=== PATIENT | male | born 1955 | race Caucasian/White ===

== ENCOUNTER 2016-11-29 19:27 | Emergency (ER) | payer BC ==
[~2016-11-29] VITALS: Ht 175.3 cm; Wt 87.3 kg
[2016-11-29 19:41] VITALS: Ht 175.3 cm; Wt 87.3 kg
--- NOTE | 2016-11-29 20:43 | DIAGNOSTIC IMAGING REPORT ---
LEFT WRIST 4 VIEWS CLINICAL HISTORY: Fall with left wrist injury. FINDINGS: 4 views of left wrist are obtained. No prior studies are available for comparison at the time of dictation. The skeletal structures are osteopenic. No definite acute fracture is seen. There is chronic appearing deformity of the distal radial metaphysis, likely related to remote fracture. Mild degenerative narrowing is seen at the radiocarpal articulation. Arthritic change is noted at the first carpometacarpal articulation. Calcification is noted in the triangle fibrocartilage. Soft tissue edema is noted around the wrist. IMPRESSION: 1. Soft tissue swelling. No definite acute fracture is seen. If there is clinical concern for occult fracture consider short-term radiographic follow-up. 2. There is chronic appearing contour deformity of the distal radial metaphysis, likely related to remote fracture. Correlation with the clinical findings and patient history will be required. 3. Osteopenia with mild degenerative change and chondrocalcinosis as above. Electronically signed by: Yonathan Michelle M.D. 11/29/2016 8:41 PM Dictated Date/Time: 11/29/2016 8:39 PM
--- NOTE | 2016-11-29 20:46 | DIAGNOSTIC IMAGING REPORT ---
RIGHT ANKLE 3 VIEWS CLINICAL HISTORY: Right ankle twisting injury. FINDINGS: 3 views of the right ankle are obtained. No prior studies are available for comparison at the time of dictation. The skeletal structures are osteopenic. There is an acute and minimally distracted avulsion fracture from the inferior aspect of the lateral malleolus. No additional fracture is identified. The ankle mortise appears maintained. There is a joint effusion and soft tissue swelling is seen around the ankle. Degenerative spurring is noted along the dorsal aspect of the tarsal bones. IMPRESSION: Minimally distracted avulsion fracture from the lateral malleolus with associated soft tissue swelling and joint effusion. Electronically signed by: Yonathan Michelle M.D. 11/29/2016 8:44 PM Dictated Date/Time: 11/29/2016 8:43 PM
--- NOTE | 2016-11-29 21:01 | EMERGENCY ROOM VISIT NOTE ---
ED Visit Note First contact with patient: 19:47 CHIEF COMPLAINT: Right ankle and left wrist injuries after a fall this afternoon HISTORY OF PRESENT ILLNESS: Patient is a [id number] 61-year-old white male who presents emergency department for evaluation of right ankle and left wrist pain. He states that he tripped on the sidewalk this afternoon while taking a walk. He rolled his right ankle and fell, catching himself on his extended left wrist. He did also landed on his flexed left knee and has an abrasion there. He did not strike his head or lose consciousness. He is primarily concerned about the pain in the lateral aspect of the right ankle. It is progressively worsened throughout the afternoon despite taking ibuprofen and applying ice. He is now having difficulty weightbearing. He rates his discomfort and 8/10. He does also note some discomfort in the dorsal aspect of the left wrist that is worse with movement. He reports a remote history of a left wrist fracture. REVIEW OF SYSTEMS: Review of systems as per HPI. All other systems reviewed were negative. At least 6 systems reviewed. PMH: Electronic medical records are reviewed and summarized as above/below. See Problem List. SOCIAL HISTORY: Patient lives at home with his . Nonsmoker.. PHYSICAL EXAM: Vital Signs: Reviewed Nurse's notes. MENTAL STATUS: Pleasant 61- year-old white male who is awake and alert and seated in a wheelchair in no acute distress. The right ankle is swollen and tender over the lateral aspect but the skin is intact and there is no ligamentous instability. No pain over the 5th metatarsal or fibular head. Lisfranc joint is negative. There is no deformity. The foot and toes are warm and well-perfused. Sensation to pain and light touch is intact. Examination of the left wrist shows slight dorsal soft tissue swelling, with some mild tenderness over the distal aspect of the dorsal radius. Does have pain with wrist extension and pronation and supination. No anatomic snuffbox tenderness. EMERGENCY DEPARTMENT COURSE: X-rays of the left wrist and right ankle were obtained. Wrist x-rays were interpreted as negative for acute fracture or bony abnormality. Ankle x-ray is consistent with an acute minimally distracted avulsion fracture of the inferior lateral malleolus. A short-leg exterior Ortho -Glass splint was applied to the ankle under my direction and the position was satisfactory. Walker were issued and patient was instructed on a non weight bearing gait. He is previously established with [facility]. He declined prescription analgesia. He has a wrist lacer at home that he can use. Differential diagnosis include foot verses ankle sprain/fracture, contusion, dislocation. RIGHT ANKLE 3 VIEWS CLINICAL HISTORY: Right ankle twisting injury. FINDINGS: 3 views of the right ankle are obtained. No prior studies are available for comparison at the time of dictation. The skeletal structures are osteopenic. There is an acute and minimally distracted avulsion fracture from the inferior aspect of the lateral malleolus. No additional fracture is identified. The ankle mortise appears maintained. There is a joint effusion and soft tissue swelling is seen around the ankle. Degenerative spurring is noted along the dorsal aspect of the tarsal bones. IMPRESSION: Minimally distracted avulsion fracture from the lateral malleolus with associated soft tissue swelling and joint effusion. LEFT WRIST 4 VIEWS CLINICAL HISTORY: Fall with left wrist injury. FINDINGS: 4 views of left wrist are obtained. No prior studies are available for comparison at the time of dictation. The skeletal structures are osteopenic. No definite acute fracture is seen. There is chronic appearing deformity of the distal radial metaphysis, likely related to remote fracture. Mild degenerative narrowing is seen at the radiocarpal articulation. Arthritic change is noted at the first carpometacarpal articulation. Calcification is noted in the triangle fibrocartilage. Soft tissue edema is noted around the wrist. IMPRESSION: 1. Soft tissue swelling. No definite acute fracture is seen. If there is clinical concern for occult fracture consider short-term radiographic follow-up. 2. There is chronic appearing contour deformity of the distal radial metaphysis, likely related to remote fracture. Correlation with the clinical findings and patient history will be required. 3. Osteopenia with mild degenerative change and chondrocalcinosis as above. Problem List Medical Problems: (1) Diab Jerica Wo Compl, Type Ii Or Unspec Type, Uncontrolled Status: Chronic (2) Dysmetabolic Syndrome X Status: Chronic (3) Hypertension Nos Status: Chronic (4) Hypertrophy Of Prostate (Benign) Status: Chronic (5) Mixed Hyperlipidemia Status: Chronic Current/Historical Medications Scheduled Glyburide (Diabeta), 1 TAB PO DAILY Lisinopril (Prinivil), 1 TAB PO DAILY Metformin Hcl (Glucophage), 850 MG PO TID Simvastatin (Zocor), 1 TAB PO QPM Sitagliptin (Januvia), 1 TAB PO DAILY [Flourocil], 1 APPLN TOP BID Allergies Coded Allergies: No Known Allergies (Verified Allergy, Unknown, 01/01/03) Vital Signs Date Time Temp Pulse Resp B/P Pulse Ox O2 Delivery O2 Flow Rate FiO2 11/29/16 21:15 90 18 164/89 97 11/29/16 19:41 90 18 192/102 99 Room Air Departure Information Impression Primary Impression: Closed fracture of right distal fibula Additional Impression: Left wrist sprain Referrals Ricardo Luna MD (PCP) Javier Hall M.D. Patient Instructions My [facility] Additional Instructions Ibuprofen(Motrin, Advil) may be used for fever or pain. Use 600mg every six hours as needed. Take with food. Avoid using more than 2400mg in a 24 hour period. Do not use 2400mg per day for more than three consecutive days without physician direction. Prolonged inappropriate use can lead to stomach upset or ulcers. This medication can be taken if you need to drive, work, or perform activities which may be dangerous when taking narcotic pain medication. (AND/OR) Acetaminophen(Tylenol) may be used for fever or pain. Use 1000mg every six hours as needed. Avoid using more than 3000mg in a 24 hour period. This medication can be taken if you need to drive, work, or perform activities which may be dangerous when taking narcotic pain medication. Ice compresses for 20 minutes at a time four times daily for 2-3 days. Use the walker as instructed. Wear the wrist lacer on the left wrist as needed for support. Rest and elevate your injury. Do not get the splint wet. If your splint feels excessively tight, you have worsening pain, develop numbness or tingling, or your digits appear blue, loosen the thomas wrap. Then reapply the thomas wrap gently without removing the splint. If your symptoms are not quickly relieved return to the ER for re- evaluation. Continue current medications. Return to the ER immediately for any numbness, tingling, severe pain, extreme swelling in the extremity or as needed. Call [facility] tomorrow to arrange follow up for your injury. Problem Qualifiers
[2016-11-29] MEDS ORDERED: LISI10TA PO (21:05)
[2016-11-29] MEDS ORDERED: SITA25TA PO (21:05)
[2016-11-29] MEDS ORDERED: GLYB2.5T7 PO (21:05)
[2016-11-29] MEDS ORDERED: [UNRECOGNIZED DRUG - OTHER] TOP (21:05)
[2016-11-29] MEDS ORDERED: SIMV10TA2 PO (21:05)
[2016-11-29 21:15] VITALS: BP 164/89; PULSE 90; O2SAT 97
[2017-06-24] MEDS ORDERED: CETI10TA84 PO (20:21)
[2017-06-24] MEDS ORDERED: ACT/45 PO (20:21)
[2017-06-24] MEDS ORDERED: GLYB1.257 PO (20:21)
[2017-06-24] MEDS ORDERED: SITA1TAB27 PO (20:21)
[2017-06-24] MEDS ORDERED: SIMV20TA5 PO (20:21)
[2017-06-24] MEDS ORDERED: LISI-725 PO (20:21)
[2017-06-24] MEDS ORDERED: ASPI81TA28 PO (20:21)
[2017-06-24] MEDS ORDERED: METF-383 PO (21:05)
[2017-06-24] MEDS ORDERED: HYDR-5688 PO (23:05)
== END 2016-11-29 21:18 | disposition home or self-care (01) ==
LOC: C.EDB 19:29 → C.EDD 21:18
DX: S82.61XA Displaced fracture of lateral malleolus of right fibula, initial encounter for closed fracture (principal); S63.502A Unspecified sprain of left wrist, initial encounter; W01.0XXA Fall on same level from slipping, tripping and stumbling without subsequent striking against object, initial encounter; Y92.480 Sidewalk as the place of occurrence of the external cause; E11.9 Type 2 diabetes mellitus without complications; I10 Essential (primary) hypertension; N40.0 Benign prostatic hyperplasia without lower urinary tract symptoms; E78.5 Hyperlipidemia, unspecified; E88.81 Metabolic syndrome and other insulin resistance; Z79.899 Other long term (current) drug therapy

== ENCOUNTER 2018-09-13 20:08 | Observation (INO) ==
[2018-09-13] MEDS ORDERED: MoRPHine SULFATE 4 MG/ML 1 ML CARP\\VIAL IV PRN (20:50)
[2018-09-13] MEDS ORDERED: ONDANSETRON INJ 2 MG/ML 2 ML VIAL IV STA (20:50)
[2018-09-13] MEDS ORDERED: SODIUM CHLORIDE 0.9% 1000ML 1,000 ML IV SCH (21:00)
[2018-09-13 21:06] LABS: Appearance Urine Clear (Clear); Bilirubin Urine Negative (Negative); Color Urine Dark Yellow; Glucose Urine UA Negative (Negative); Ketones Urine 1+ (Negative); Leukocyte Esterase Urine Negative (Negative); Nitrite Urine Negative (Negative); Protein Urine Negative (Negative); Specific Gravity Urine 1.019 (1.000-1.030); Urobilinogen Urine Negative (Negative); pH Urine 5.5 (4.5-7.5)
--- NOTE | 2018-09-13 21:07 | Emergency Department Note ---
Entered by Anushka Pena acting as a scribe for Rikki Nicole DO History of Present Illness General Chief complaint: Abdominal Pain Stated complaint: ABDOMINAL PAIN,SWELLING IN [place] Time Seen by Provider: 09/13/18 20:41 Source: patient Mode of arrival: ambulatory Limitations: no limitations History of Present Illness Provider complaint: abdominal pain Onset (ago): day(s) 2 Location: abdomen Pain Consistency: + other (persistent) Maximum Pain Intensity: 10 Current Pain Intensity: 5 Quality: + other (abd pain) Associated symptoms: + other (constipation, red swelling and painful hernia); no nausea/vomiting The patient is a 63 year old male who presents to the Emergency Room with complaints of a worsening abdominal pain that began 2 days ago. The patient reports that he has an umbilical hernia which is red, swollen and painful. He states that he has never experienced pain since having the hernia. The patient denies any nausea or vomiting but notes he has been constipated. Home Medications Home Medications Medication Instructions Recorded Confirmed Type aspirin [Aspir-81] 81 mg PO DAILY 09/13/18 09/13/18 History glyburide 1.25 mg PO DAILY 09/13/18 09/13/18 History lisinopril [Zestril] 10 mg PO DAILY 09/13/18 09/13/18 History metformin [Glucophage] 850 mg PO TID 09/13/18 09/13/18 History pioglitazone [Actos] 45 mg PO DAILY 09/13/18 09/13/18 History simvastatin [Zocor] 20 mg PO QPM 09/13/18 09/13/18 History sitagliptin [Januvia] 100 mg PO DAILY 09/13/18 09/13/18 History oxycodone-acetaminophen [Percocet] 1 tab PO Q6H PRN #12 tab 09/14/18 Rx Allergies Allergy/AdvReac Type Severity Reaction Status Date / Time pepper (genus Capsicum) Allergy Mild Swelling Verified 09/13/18 23:36 of Lip/Tongue/Throat tomato Allergy Mild SWELLING Verified 09/13/18 22:34 TONGUE EGG PLANT Allergy Intermediate SWELLING Uncoded 09/13/18 22:34 TONGUE Past Med/Surg History Medical History Incarcerated umbilical hernia (Acute) Diabetes mellitus Hyperlipidemia Hypertension Hyponatremia Chronic. Na as low as 128 in 2009 and 2011. 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 and A total of 10 systems reviewed and were otherwise negative Physical Exam Vital Signs Vital Signs - 24 hr 09/13/18 20:15 09/13/18 21:24 09/13/18 23:00 Temperature 36.6 C 36.8 C Temperature Source Oral Oral Sepsis Recent Fever Within 48 Hours No Sepsis Action Taken by Nursing No Action Required Pulse Rate 105 H Pulse Rate [Finger] 89 Pulse Rhythm [Finger] Pulse Strength [Finger] Respiratory Rate 18 16 Respiratory Effort / Characteristics Non-Labored Spontaneous Non-Labored Spontaneous Respiratory Depth Normal Normal Respiratory Pattern Regular Blood Pressure 202/112 H Blood Pressure [Left Arm] 174/101 H Blood Pressure Mean 142 Blood Pressure Mean [Left Arm] 125 Blood Pressure Position Sitting Blood Pressure Position [Left Arm] Sitting Pulse Oximetry 99 98 Oxygen Delivery Method Room Air Room Air Room Air Oxygen Flow Rate 09/13/18 23:47 09/13/18 23:50 09/14/18 00:00 Temperature Temperature Source Sepsis Recent Fever Within 48 Hours Sepsis Action Taken by Nursing Pulse Rate Pulse Rate [Finger] 89 85 79 Pulse Rhythm [Finger] Pulse Strength [Finger] Respiratory Rate 16 16 18 Respiratory Effort / Characteristics Respiratory Depth Normal Respiratory Pattern Blood Pressure Blood Pressure [Left Arm] 182/98 H 154/98 H 148/90 H Blood Pressure Mean Blood Pressure Mean [Left Arm] 126 116 109 Blood Pressure Position Blood Pressure Position [Left Arm] Sitting Sitting Lying Pulse Oximetry 98 97 98 Oxygen Delivery Method Room Air Oxygen Flow Rate 09/14/18 00:15 09/14/18 00:34 09/14/18 02:15 Temperature 36.7 C Temperature Source Oral Sepsis Recent Fever Within 48 Hours Sepsis Action Taken by Nursing Pulse Rate Pulse Rate [Finger] 78 86 90 Pulse Rhythm [Finger] Regular Pulse Strength [Finger] Normal Respiratory Rate 18 18 16 Respiratory Effort / Characteristics Non-Labored Respiratory Depth Normal Respiratory Pattern Regular Blood Pressure Blood Pressure [Left Arm] 143/90 H 139/88 184/104 H Blood Pressure Mean Blood Pressure Mean [Left Arm] 107 105 130 Blood Pressure Position Blood Pressure Position [Left Arm] Sitting Lying Pulse Oximetry 97 98 100 Oxygen Delivery Method Room Air Room Air Oxymask Oxygen Flow Rate 10 09/14/18 02:16 09/14/18 02:20 09/14/18 02:25 Temperature 36.7 C 36.7 C 36.7 C Temperature Source Sepsis Recent Fever Within 48 Hours Sepsis Action Taken by Nursing Pulse Rate 87 87 84 Pulse Rate [Finger] Pulse Rhythm [Finger] Pulse Strength [Finger] Respiratory Rate 17 17 16 Respiratory Effort / Characteristics Respiratory Depth Respiratory Pattern Blood Pressure 168/93 H 169/100 H 153/95 H Blood Pressure [Left Arm] Blood Pressure Mean 118 123 114 Blood Pressure Mean [Left Arm] Blood Pressure Position Blood Pressure Position [Left Arm] Pulse Oximetry 100 100 96 Oxygen Delivery Method Oxymask Oxymask Room Air Oxygen Flow Rate 5 2 09/14/18 02:30 09/14/18 02:35 09/14/18 02:40 Temperature 36.7 C Temperature Source Sepsis Recent Fever Within 48 Hours Sepsis Action Taken by Nursing Pulse Rate 89 87 86 Pulse Rate [Finger] Pulse Rhythm [Finger] Pulse Strength [Finger] Respiratory Rate 17 16 16 Respiratory Effort / Characteristics Respiratory Depth Respiratory Pattern Blood Pressure 158/101 H 165/99 H 158/95 H Blood Pressure [Left Arm] Blood Pressure Mean 120 121 116 Blood Pressure Mean [Left Arm] Blood Pressure Position Blood Pressure Position [Left Arm] Pulse Oximetry 98 94 96 Oxygen Delivery Method Room Air Room Air Room Air Oxygen Flow Rate 09/14/18 03:25 09/14/18 03:29 09/14/18 03:53 Temperature 36.5 C 36.5 C 36.5 C Temperature Source Oral Oral Oral Sepsis Recent Fever Within 48 Hours Sepsis Action Taken by Nursing Pulse Rate Pulse Rate [Finger] 84 84 82 Pulse Rhythm [Finger] Regular Pulse Strength [Finger] Normal Respiratory Rate 16 14 16 Respiratory Effort / Characteristics Non-Labored Spontaneous Respiratory Depth Normal Respiratory Pattern Regular Blood Pressure Blood Pressure [Left Arm] 171/85 H 171/85 H 166/86 H Blood Pressure Mean Blood Pressure Mean [Left Arm] 113 113 112 Blood Pressure Position Blood Pressure Position [Left Arm] Lying Lying Lying Pulse Oximetry 96 96 95 Oxygen Delivery Method Room Air Room Air Room Air Oxygen Flow Rate 09/14/18 04:25 09/14/18 05:37 09/14/18 06:28 Temperature 36.6 C 36.7 C 36.5 C Temperature Source Oral Oral Oral Sepsis Recent Fever Within 48 Hours Sepsis Action Taken by Nursing Pulse Rate Pulse Rate [Finger] 82 86 85 Pulse Rhythm [Finger] Pulse Strength [Finger] Respiratory Rate 16 16 16 Respiratory Effort / Characteristics Respiratory Depth Respiratory Pattern Blood Pressure Blood Pressure [Left Arm] 149/82 H 156/87 H 154/78 H Blood Pressure Mean Blood Pressure Mean [Left Arm] 104 110 103 Blood Pressure Position Blood Pressure Position [Left Arm] Lying Lying Lying Pulse Oximetry 94 98 98 Oxygen Delivery Method Room Air Room Air Room Air Oxygen Flow Rate GENERAL: Patient is awake alert in no acute distress patient is resting comfortably and showing no signs of anxiety EYES: The conjunctivae are clear. The pupils are round and reactive. EARS, NOSE, MOUTH AND THROAT: The nose is without any evidence of any deformity. Mucous membranes are moist tongue is midline NECK: The neck is nontender and supple. RESPIRATORY: Normal respiratory effort is noted there is no evidence of wheezing rhonchi or rales CARDIOVASCULAR: Regular rate and rhythm noted there no murmurs rubs or gallops normal S1 normal S2 GASTROINTESTINAL: The abdomen is moderately distended. There is periumbilical tenderness to palpation. There is erythema and tenderness over the umbilicus. There appears to be an incarcerated umbilical hernia. MUSCULOSKELETAL/EXTREMITIES: There is no evidence of gross deformity full range of motion is noted in the hips and shoulders SKIN: There is no obvious evidence of any rash. There are no petechiae, pallor or cyanosis noted. NEUROLOGIC: Patient is awake alert and oriented x3. Course 2045: Past medical records reviewed. The patient was evaluated in room A11B, and a complete history and physical examination were performed. 2254: I reviewed the patient's case with Dr. Bundy - [facility] General Surgery. He will evaluate the patient for further management. Administered Medications Aspirin (Ecotrin Ectab) 81 mg PO DAILY JONATHAN Stop: 10/14/18 08:59 Last Admin: 09/14/18 11:32 Dose: 81 mg Enoxaparin Sodium (Lovenox) 40 mg SQ QAM [facility] Stop: 10/14/18 10:59 Last Admin: 09/14/18 11:31 Dose: 40 mg Sodium Chloride (Nss 1000ml) 1,000 mls @ 80 mls/hr IV .[id number] [facility] Stop: 10/14/18 02:14 Last Admin: 09/14/18 04:22 Dose: 80 mls/hr Cefazolin Sodium (Ancef 1000mg) 1,000 mg in 7.5 mls @ 2.5 mls/min IV Q8H [facility] Stop: 09/15/18 04:59 Last Admin: 09/14/18 05:45 Dose: 2.5 mls/min Lisinopril (Zestril) 10 mg PO DAILY [facility] Stop: 10/14/18 08:59 Last Admin: 09/14/18 11:30 Dose: 10 mg Menthol (Nice) 1 antoinette BUCCAL PRN PRN PRN Reason: SORE THROAT Stop: 10/14/18 09:40 Last Admin: 09/14/18 11:31 Dose: 1 antoinette Sitagliptin Phosphate (Januvia) 100 mg PO DAILY [facility] Stop: 10/14/18 10:59 Last Admin: 09/14/18 11:31 Dose: 100 mg Discontinued Medications Bacitracin (Bacitracin) Confirm Administered Dose 45 appln .ROUTE .STK-MED ONE Stop: 09/13/18 23:21 Last Admin: 09/14/18 01:45 Dose: 45 appln Bupivacaine HCl (Marcaine 0.5% Mpf) Confirm Administered Dose 30 ml .ROUTE .STK- MED ONE Stop: 09/13/18 23:21 Last Admin: 09/14/18 01:45 Dose: 10 ml Sodium Chloride (Nss 1000ml) 1,000 mls @ 999 mls/hr IV .[id number] [facility] Stop: 09/13/18 22:00 Last Infusion: 09/13/18 23:18 Dose: 0 mls/hr Admin: 09/13/18 21:29 Dose: 999 mls/hr Cefoxitin Sodium (Mefoxin) 2,000 mg in 60 mls @ 100 mls/hr IV NOW STA Stop: 09/13/18 23:15 Last Infusion: 09/13/18 23:46 Dose: 0 mls/hr Admin: 09/13/18 23:18 Dose: 100 mls/hr Cefazolin Sodium (Ancef 2000mg) 2,000 mg in 15 mls @ 3.75 mls/min IV PREOP JONATHAN ; Protocol Stop: 09/14/18 12:00 Last Admin: 09/14/18 04:23 Dose: Not Given Insulin Glargine (Lantus Per Unit) 15 units SQ ONE ONE Stop: 09/14/18 11:31 Last Admin: 09/14/18 11:32 Dose: 15 units Ioversol (Optiray 320 100ml) 90 ml IV ONCE PRN PRN Reason: Interaction Checking Stop: 09/17/18 21:33 Last Admin: 09/13/18 21:34 Dose: 90 ml Labetalol HCl (Normodyne) 10 mg IV NOW STA Stop: 09/13/18 23:21 Last Admin: 09/13/18 23:47 Dose: 10 mg Lidocaine HCl (Xylocaine 1% (Local)) Confirm Administered Dose 20 ml .ROUTE .STK -MED ONE Stop: 09/13/18 23:21 Last Admin: 09/14/18 01:46 Dose: 10 ml Menthol (Nice) Confirm Administered Dose 24 antoinette BUCCAL .STK-MED ONE Stop: 09/14/18 09:20 Last Admin: 09/14/18 11:31 Dose: Not Given Morphine Sulfate (Morphine Sulfate) 4 mg IV Q15M PRN PRN Reason: Pain Stop: 09/27/18 20:49 Last Admin: 09/13/18 21:29 Dose: 4 mg Ondansetron HCl (Zofran) 4 mg IV NOW STA Stop: 09/13/18 20:51 Last Admin: 09/13/18 21:28 Dose: 4 mg Medical Decision Making Differential Diagnosis Differential diagnosis includes: gastritis, peptic ulcer disease, GERD, gallbladder disease, pancreatitis, small bowel obstruction, acute coronary syndrome, pericarditis, ischemic bowel, irritable bowel disease, irritable bowel syndrome, appendicitis, diverticulitis, malignancy, hernia, UTI, torsion, perforation, trauma, and kidney stones. Medical Records Attestation: I reviewed the patient's medical records. Home Medications Current Medication List: was personally reviewed by me Laboratory Data Attestation: I reviewed the patient's lab results. Result diagrams: 09/14/18 05:46 09/14/18 05:46 Lab Results 09/13/18 09/13/18 09/13/18 Range/Units 21:00 21:19 21:20 WBC 8.09 (4.8-10.8) K/uL RBC 4.95 (4.7-6.1) M/uL Hgb 15.0 (14.0-18.0) g/dL POC Hgb 15.0 (14.0-18.0) g/dl Hct 42.4 (42-52) % POC Hct 44 (42-52) % MCV 85.7 (80-100) fL MCH 30.3 (25-34) pg MCHC 35.4 (32-36) g/dL RDW Std Deviation 42.1 (36.4-46.3) fL RDW Coeff of Kwesi 13.5 (11.5-14.5) % Plt Count 243 (130-400) K/uL MPV 8.9 (7.4-10.4) fL Immature Gran % (Auto) 0.4 % Neut % (Auto) 74.9 % Lymph % (Auto) 10.3 % [place] % (Auto) 11.5 % Eos % (Auto) 2.7 % Baso % (Auto) 0.2 % Immature Gran # (Auto) 0.03 H (0.00-0.02) K/uL Neut # (Auto) 6.06 (1.4-6.5) K/uL Lymph # (Auto) 0.83 L (1.2-3.4) K/uL [place] # (Auto) 0.93 H (0.11-0.59) K/uL Eos # (Auto) 0.22 (0-0.5) K/uL Baso # (Auto) 0.02 (0-0.2) K/uL PT (9.0-12.0) Seconds INR (0.9-1.1) POC Sodium 127 L (135-144) mEq/L Sodium (136-145) mmol/L POC Potassium 4.0 (3.3-5.0) mEq/L Potassium (3.5-5.1) mmol/L POC Chloride 89 L (101-112) mEq/L Chloride (98-107) mmol/L Carbon Dioxide (21-32) mmol/L POC Total CO2 25 (24-31) mEq/l Anion Gap (3-11) POC Anion Gap 19.0 (16-25) mmol/L POC BUN 14 (7-18) mg/dl BUN (7-18) mg/dl Creatinine (0.6-1.4) mg/dl POC Creatinine 0.8 (0.6-1.3) mg/dl Est Cr Clr Drug Dosing ml/min Est GFR ( Amer) Est GFR (Non-Af Amer) BUN/Creatinine Ratio (10-20) Glucose (70-99) mg/dl POC Glucose (70-99) POC Glucose (other) TNP Calcium (8.5-10.1) mg/dl POC Ioniz Calcium Suraj 1.17 (1.12-1.32) mmol/l Total Bilirubin (0.2-1) mg/dl AST (15-37) U/L ALT (12-78) U/L Alkaline Phosphatase (45-117) U/L Total Protein (6.4-8.2) gm/dl Albumin (3.4-5.0) gm/dl Globulin (2.5-4.0) gm/dl Albumin/Globulin Ratio (0.9-2) Lipase (73-393) U/L Urine Color Dark Yellow Urine Appearance Clear (Clear) Urine pH 5.5 (4.5-7.5) Ur Specific Orick 1.019 (1.000-1.030) Urine Protein Negative (Negative) Urine Glucose (UA) Negative (Negative) Urine Ketones 1+ H (Negative) Urine Blood Negative (Negative) Urine Nitrite Negative (Negative) Urine Bilirubin Negative (Negative) Urine Urobilinogen Negative (Negative) Ur Leukocyte Esterase Negative (Negative) 09/13/18 09/13/18 09/14/18 Range/Units 21:20 23:33 05:46 WBC 6.26 (4.8-10.8) K/uL RBC 4.47 L (4.7-6.1) M/uL Hgb 13.7 L (14.0-18.0) g/dL POC Hgb (14.0-18.0) g/dl Hct 39.0 L (42-52) % POC Hct (42-52) % MCV 87.2 (80-100) fL MCH 30.6 (25-34) pg MCHC 35.1 (32-36) g/dL RDW Std Deviation 43.1 (36.4-46.3) fL RDW Coeff of Kwesi 13.5 (11.5-14.5) % Plt Count 211 (130-400) K/uL MPV 8.6 (7.4-10.4) fL Immature Gran % (Auto) 0.3 % Neut % (Auto) 67.4 % Lymph % (Auto) 13.6 % [place] % (Auto) 15.7 % Eos % (Auto) 2.7 % Baso % (Auto) 0.3 % Immature Gran # (Auto) 0.02 (0.00-0.02) K/uL Neut # (Auto) 4.22 (1.4-6.5) K/uL Lymph # (Auto) 0.85 L (1.2-3.4) K/uL [place] # (Auto) 0.98 H (0.11-0.59) K/uL Eos # (Auto) 0.17 (0-0.5) K/uL Baso # (Auto) 0.02 (0-0.2) K/uL PT (9.0-12.0) Seconds INR (0.9-1.1) POC Sodium (135-144) mEq/L Sodium 124 L 129 L (136-145) mmol/L POC Potassium (3.3-5.0) mEq/L Potassium 3.9 4.2 (3.5-5.1) mmol/L POC Chloride (101-112) mEq/L Chloride 89 L 95 L (98-107) mmol/L Carbon Dioxide 25 26 (21-32) mmol/L POC Total CO2 (24-31) mEq/l Anion Gap 10.0 8.0 (3-11) POC Anion Gap (16-25) mmol/L POC BUN (7-18) mg/dl BUN 14 13 (7-18) mg/dl Creatinine 0.90 1.33 D (0.6-1.4) mg/dl POC Creatinine (0.6-1.3) mg/dl Est Cr Clr Drug Dosing 91.3 61.8 ml/min Est GFR ( Amer) 105.0 65.5 Est GFR (Non-Af Amer) 90.6 56.5 BUN/Creatinine Ratio 16.0 9.8 L (10-20) Glucose 195 H 165 H (70-99) mg/dl POC Glucose (70-99) POC Glucose (other) Calcium 9.5 8.7 (8.5-10.1) mg/dl POC Ioniz Calcium Suraj (1.12-1.32) mmol/l Total Bilirubin 0.6 0.6 (0.2-1) mg/dl AST 10 L 10 L (15-37) U/L ALT 27 21 (12-78) U/L Alkaline Phosphatase 46 40 L (45-117) U/L Total Protein 7.4 6.7 (6.4-8.2) gm/dl Albumin 4.2 3.8 (3.4-5.0) gm/dl Globulin 3.2 2.9 (2.5-4.0) gm/dl Albumin/Globulin Ratio 1.3 1.3 (0.9-2) Lipase 153 (73-393) U/L Urine Color Urine Appearance (Clear) Urine pH (4.5-7.5) Ur Specific Orick (1.000-1.030) Urine Protein (Negative) Urine Glucose (UA) (Negative) Urine Ketones (Negative) Urine Blood (Negative) Urine Nitrite (Negative) Urine Bilirubin (Negative) Urine Urobilinogen (Negative) Ur Leukocyte Esterase (Negative) 09/14/18 09/14/18 09/14/18 Range/Units 05:46 08:04 09:54 WBC (4.8-10.8) K/uL RBC (4.7-6.1) M/uL Hgb (14.0-18.0) g/dL POC Hgb (14.0-18.0) g/dl Hct (42-52) % POC Hct (42-52) % MCV (80-100) fL MCH (25-34) pg MCHC (32-36) g/dL RDW Std Deviation (36.4-46.3) fL RDW Coeff of Kwesi (11.5-14.5) % Plt Count (130-400) K/uL MPV (7.4-10.4) fL Immature Gran % (Auto) % Neut % (Auto) % Lymph % (Auto) % [place] % (Auto) % Eos % (Auto) % Baso % (Auto) % Immature Gran # (Auto) (0.00-0.02) K/uL Neut # (Auto) (1.4-6.5) K/uL Lymph # (Auto) (1.2-3.4) K/uL [place] # (Auto) (0.11-0.59) K/uL Eos # (Auto) (0-0.5) K/uL Baso # (Auto) (0-0.2) K/uL PT 10.6 (9.0-12.0) Seconds INR 1.1 (0.9-1.1) POC Sodium (135-144) mEq/L Sodium 129 L (136-145) mmol/L POC Potassium (3.3-5.0) mEq/L Potassium 4.0 (3.5-5.1) mmol/L POC Chloride (101-112) mEq/L Chloride 95 L (98-107) mmol/L Carbon Dioxide 28 (21-32) mmol/L POC Total CO2 (24-31) mEq/l Anion Gap 7.0 (3-11) POC Anion Gap (16-25) mmol/L POC BUN (7-18) mg/dl BUN 10 (7-18) mg/dl Creatinine 0.92 D (0.6-1.4) mg/dl POC Creatinine (0.6-1.3) mg/dl Est Cr Clr Drug Dosing 89.3 ml/min Est GFR ( Amer) 102.2 Est GFR (Non-Af Amer) 88.2 BUN/Creatinine Ratio 11.1 (10-20) Glucose 174 H (70-99) mg/dl POC Glucose 156 H (70-99) POC Glucose (other) Calcium 8.0 L (8.5-10.1) mg/dl POC Ioniz Calcium Suraj (1.12-1.32) mmol/l Total Bilirubin 0.5 (0.2-1) mg/dl AST 13 L (15-37) U/L ALT 22 (12-78) U/L Alkaline Phosphatase 37 L (45-117) U/L Total Protein 6.2 L (6.4-8.2) gm/dl Albumin 3.4 (3.4-5.0) gm/dl Globulin 2.8 (2.5-4.0) gm/dl Albumin/Globulin Ratio 1.2 (0.9-2) Lipase (73-393) U/L Urine Color Urine Appearance (Clear) Urine pH (4.5-7.5) Ur Specific [place] (1.000-1.030) Urine Protein (Negative) Urine Glucose (UA) (Negative) Urine Ketones (Negative) Urine Blood (Negative) Urine Nitrite (Negative) Urine Bilirubin (Negative) Urine Urobilinogen (Negative) Ur Leukocyte Esterase (Negative) Imaging Data Radiologist's Impression: Radiology results as stated below per my review and the radiologist's interpretation: XR chest 1V portable HISTORY: 63 years-old Male pain acute atypical chest pain COMPARISON: None available TECHNIQUE: Portable AP view of the chest FINDINGS: Cardiomediastinal and hilar silhouettes are within normal limits. No pneumothorax, pleural effusion, focal airspace consolidation or overt pulmonary edema. Linear subsegmental left basilar atelectasis/scarring. Left shoulder arthroplasty. Degenerative changes about the spine are noted. IMPRESSION: No acute process. The above report was generated using voice recognition software. It may contain grammatical, syntax or spelling errors. Electronically signed by: Abdirashid Sequeira M.D. 09/13/2018 9:10 PM ABDOMEN AND PELVIS CT WITH IV CONTRAST CT DOSE: 536.28 mGy.cm HISTORY: Acute periumbilical abdominal pain and swelling periumbilical swelling TECHNIQUE: Multiaxial CT images of the abdomen and pelvis were performed following the use of intravenous contrast. A dose lowering technique was utilized adhering to the principles of ALARA. COMPARISON STUDY: None. FINDINGS: Minimal subsegmental left basilar atelectasis. 5 mm solid nodule of the lateral basal segment right lower lobe, image 27 series 3. Additional 2 mm solid nodule right lower lobe is also seen. No pneumatosis or pneumoperitoneum. The imaged inferior cardiac chambers appear unremarkable. Gallbladder is mildly contracted. There is an indeterminate mildly hypodense lesion about the right hepatic lobe which measures 2.0 x 1.7 x 2.0 cm. Differential considerations would include hemangioma among other etiologies. Liver is otherwise unremarkable. No evidence of cirrhosis or intrahepatic biliary ductal dilation. Spleen, and pancreas appear unremarkable. Mild right and moderate left adrenal gland thickening. Mild nonspecific bilateral perinephric stranding. Focal area of cortical scarring and parenchymal thinning is noted about the interpolar right kidney and anterior aspect of the inferior pole. No ureteral calculi or obstructive uropathy. Partial distention of the urinary bladder with mild circumferential wall thickening. Mild prostamegaly. Small fat filled bilateral inguinal hernias. Moderate calcification of the aorta without aneurysm. No adenopathy. Small sliding-type hiatal hernia. No small bowel obstruction 12 mm lipoma involves the third portion of the duodenum. Colonic diverticulosis without acute diverticulitis. Moderate formed stool throughout the colon suggests constipation. Appendix appears normal. Fat filled periumbilical hernia is noted with diastases measuring 1.5 x 1.4 cm. Moderate infiltration of the surrounding periumbilical fat extends into the subcutaneous distribution. No focal fluid collection. Soft tissues are otherwise unremarkable. Bones appear intact. Multilevel facet arthrosis and spondylitic spurring. No suspicious lytic or blastic bony lesions. Hemangioma noted at the T12 and L4 levels. IMPRESSION: 1. Small fat filled periumbilical hernia. Moderate inflammatory stranding surrounding the hernia is suggestive of fat necrosis with reactive edema in the setting of a nonreducible hernia. 2. No bowel obstruction or focal bowel wall thickening. Normal appendix. 3. 5 mm solid nodule of the lateral basal segment right lower lobe. 4. Small sliding-type hiatal hernia. 5. Prostamegaly. 6. Mild colonic diverticulosis without acute diverticulitis. 7. Additional findings as above. Electronically signed by: Abdirashid Sequeira M.D. 09/13/2018 9:59 PM Blood Pressure Blood Pressure Findings: Elevated blood pressure Blood Pressure Disposition: Referred to patients primary care provider MDM Narrative The patient is a 63-year-old male who presented to the emergency department for an evaluation of abdominal pain. The patient is paraumbilical pain which he noticed was starting to turn red. His history and physical exam appear to be consistent with an incarcerated umbilical hernia. On CAT scan this does not appear to contain bowel however given the patient's physical findings I discussed his case with the on-call general surgeon. Patient was treated with pain medication as well as IV fluids. He was also given IV antibiotics as well as medication for blood pressure control prior to the OR. I discussed the patient's case with the on-call general surgeon and he evaluated the patient in the emergency department and felt that he was a good candidate for operative management. The patient was reevaluated multiple times. Impression & Plan Incarcerated umbilical hernia Discharge Plan Visit Data *Final* Discharge Date/Time: 09/14/18 00:34 Chief Complaint: Abdominal Pain Stated Complaint: ABDOMINAL PAIN,SWELLING IN [place] ED Provider: Rikki Nicole Discharge Problem: Incarcerated umbilical hernia Patient Disposition: Admitted As Inpatient Discharge Instructions Interventions: ED Discharge Assessment Last Done: 09/14/18 00:34 The scribe's documentation has been prepared under my direction and personally reviewed by me in its entirety. I confirm that the note above accurately reflects all work, treatment, procedures, and medical decision making performed by me.
--- NOTE | 2018-09-13 21:11 | XRay Report ---
XR chest 1V portable HISTORY: 63 years-old Male pain acute atypical chest pain COMPARISON: None available TECHNIQUE: Portable AP view of the chest FINDINGS: Cardiomediastinal and hilar silhouettes are within normal limits. No pneumothorax, pleural effusion, focal airspace consolidation or overt pulmonary edema. Linear subsegmental left basilar atelectasis/s carring. Left shoulder arthroplasty. Degenerative changes about the spine are noted. IMPRESSION: No acute process. The above report was generated using voice recognition software. It may contain grammatical, syntax o r spelling errors. Electronically signed by: Abdirashid Sequeira M.D. 09/13/2018 9:10 PM
[2018-09-13 21:29] LABS: Basophils # (auto) 0.02 K/uL (0-0.2); Basophils % (auto) 0.2 %; Eosinophils # (auto) 0.22 K/uL (0-0.5); Eosinophils % (auto) 2.7 %; Hematocrit (blood only) 42.4 % (42-52); Immature Granulocytes # (auto) 0.03 K/uL (0.00-0.02); Immature Granulocytes % (auto) 0.4 %; Lymphocytes # (auto) 0.83 K/uL (1.2-3.4); Lymphocytes % (auto) 10.3 %; Mean Corpuscular Hgb Conc 35.4 g/dL (32-36); Mean Corpuscular Volume 85.7 fL (80-100); Mean Platelet Volume 8.9 fL (7.4-10.4); Monocytes # (auto) 0.93 K/uL (0.11-0.59); Monocytes % (auto) 11.5 %; Neutrophils # (auto) 6.06 K/uL (1.4-6.5); Neutrophils % (auto) 74.9 %; Platelet Count 243 K/uL (130-400); RDW Coefficient of Variation 13.5 % (11.5-14.5); RDW Standard Deviation 42.1 fL (36.4-46.3); Red Blood Count 4.95 M/uL (4.7-6.1); White Blood Count 8.09 K/uL (4.8-10.8)
[2018-09-13] MEDS ORDERED: IOVERSOL 100ml IV PRN (21:34)
[2018-09-13 21:45] LABS: Albumin Level 4.2 gm/dl (3.4-5.0); Calcium 9.5 mg/dl (8.5-10.1); Creatinine Clr Calc Pharmacy 91.3 ml/min; Est GFR (Non-African American) 90.6; Potassium 3.9 mmol/L (3.5-5.1)
[2018-09-13 21:47] LABS: Albumin Globulin Ratio 1.3 (0.9-2); Bilirubin,Total 0.6 mg/dl (0.2-1); Globulin 3.2 gm/dl (2.5-4.0); Total Protein 7.4 gm/dl (6.4-8.2)
--- NOTE | 2018-09-13 22:02 | CT Scan Report ---
ABDOMEN AND PELVIS CT WITH IV CONTRAST CT DOSE: 536.28 mGy.cm HISTORY: Acute periumbilical abdominal pain and swelling periumbilical swelling TECHNIQUE: Multiaxial CT images of the abdomen and pelvis were performed following the use of intrave nous contrast. A dose lowering technique was utilized adhering to the principles of ALARA. COMPARISON STUDY: None. FINDINGS: Minimal subsegmental left basilar atelectasis. 5 mm solid nodule of the lateral basal segment right l ower lobe, image 27 series 3. Additional 2 mm solid nodule right lower lobe is also seen. No pneumato sis or pneumoperitoneum. The imaged inferior cardiac chambers appear unremarkable. Gallbladder is mildly contracted. There is an indeterminate mildly hypodense lesion about the right h epatic lobe which measures 2.0 x 1.7 x 2.0 cm. Differential considerations would include hemangioma a rayo other etiologies. Liver is otherwise unremarkable. No evidence of cirrhosis or intrahepatic bili mitchell ductal dilation. Spleen, and pancreas appear unremarkable. Mild right and moderate left adrenal g land thickening. Mild nonspecific bilateral perinephric stranding. Focal area of cortical scarring and parenchymal thi nning is noted about the interpolar right kidney and anterior aspect of the inferior pole. No uretera l calculi or obstructive uropathy. Partial distention of the urinary bladder with mild circumferentia l wall thickening. Mild prostamegaly. Small fat filled bilateral inguinal hernias. Moderate calcifica tion of the aorta without aneurysm. No adenopathy. Small sliding-type hiatal hernia. No small bowel obstruction 12 mm lipoma involves the third portion of the duodenum. Colonic diverticulosis without acute diverticulitis. Moderate formed stool throughou t the colon suggests constipation. Appendix appears normal. Fat filled periumbilical hernia is noted with diastases measuring 1.5 x 1.4 cm. Moderate infiltration of the surrounding periumbilical fat ext ends into the subcutaneous distribution. No focal fluid collection. Soft tissues are otherwise unrema rkable. Bones appear intact. Multilevel facet arthrosis and spondylitic spurring. No suspicious lytic or blastic bony lesions. Hemangioma noted at the T12 and L4 levels. IMPRESSION: 1. Small fat filled periumbilical hernia. Moderate inflammatory stranding surrounding the hernia is s uggestive of fat necrosis with reactive edema in the setting of a nonreducible hernia. 2. No bowel obstruction or focal bowel wall thickening. Normal appendix. 3. 5 mm solid nodule of the lateral basal segment right lower lobe. 4. Small sliding-type hiatal hernia. 5. Prostamegaly. 6. Mild colonic diverticulosis without acute diverticulitis. 7. Additional findings as above. Electronically signed by: Abdirashid Sequeira M.D. 09/13/2018 9:59 PM
[2018-09-13] MEDS ORDERED: cefOXitin 2,000 MG/60 ML BAG IV STA (22:40)
--- NOTE | 2018-09-13 22:52 | Anesthesiology Consultation ---
Date of Service September 13, 2018 Assessment & Plan (1) Encounter for pre-operative examination: Chart Review Chart Review: Acceptable Risk for Surgery (Pt is hyponatremic with Na: 124 (129 on recheck), however, case is urgent due to hernia being incarcerated. Pt at increased risk for complications due to hyponatremia.) and Patient NOT seen in Pre Admission Testing Consults Requested none ASA [id number] Proposed Anesthesia Anesthesia Type: General Risk / Benefits Reviewed With: PT / POA / Parent / Guardian, Accepts Plan and Informed Consent Obtained Additional Notes No CP, SOB, GERD, n/v NPO Date Last Intake of Fluids: 09/13/18 Time Last Intake of Fluids: 18:00 Date Last Intake of Solids: 09/13/18 Time Last Intake of Solids: 18:00 History Surgery Operation Date: 09/13/18 22:55 Proposed Procedures p Bowel Resection - Denys Bundy MD Height/Weight Height: 1.75 m Weight: 86 kg Allergies Allergy/AdvReac Type Severity Reaction Status Date / Time pepper (genus Capsicum) Allergy Mild Swelling Verified 09/13/18 23:36 of Lip/Tongue/Throat tomato Allergy Mild SWELLING Verified 09/13/18 22:34 TONGUE EGG PLANT Allergy Intermediate SWELLING Uncoded 09/13/18 22:34 TONGUE Medications Home Medications Medication Instructions Recorded Confirmed Last Taken aspirin [Aspir-81] 81 mg PO DAILY 09/13/18 09/13/18 Unknown glyburide 1.25 mg PO DAILY 09/13/18 09/13/18 Unknown lisinopril [Zestril] 10 mg PO DAILY 09/13/18 09/13/18 Unknown metformin [Glucophage] 850 mg PO TID 09/13/18 09/13/18 Unknown pioglitazone [Actos] 45 mg PO DAILY 09/13/18 09/13/18 Unknown simvastatin [Zocor] 20 mg PO QPM 09/13/18 09/13/18 Unknown sitagliptin [Januvia] 100 mg PO DAILY 09/13/18 09/13/18 Unknown Active Medications Generic Name Dose Route Start Last Admin Trade Name Freq PRN Reason Stop Dose Admin Ioversol 90 ml 09/13/18 21:34 09/13/18 21:34 Optiray 320 100ml IV 09/17/18 21:33 90 ml ONCE PRN Administration Interaction Checking Morphine Sulfate 4 mg 09/13/18 20:50 09/13/18 21:29 Morphine Sulfate IV 09/27/18 20:49 4 mg Q15M PRN Administration Pain Beta Kellie Beta Kellie Taken Within 24 Hours: Yes (Was given labetalol for hypertension in ED) Past Medical History Medical History Incarcerated umbilical hernia (Acute) Diabetes mellitus Hyperlipidemia Hypertension Hyponatremia Chronic. Na as low as 128 in 2009 and 2011. Being followed by PCP Past Family History Family History Other Family history non-contributory Past Surgical History Surgical History H/O shoulder surgery Left S/P colonoscopy Past Anesthesia History No Hx of Anesthesia Complications and No Family Hx of Anesthesia Complications History of PONV No Motion Sickness Screening History of Motion Sickness: No Social History Smoking Status: Never smoker Do You Dip or Chew Tobacco: No Hx Alcohol Use: Yes Alcohol type: wine alcohol intake frequency: a few times a week Hx Substance Use: No Exercise / Class Metabolic Activity II 4-5 Yardwork/Stairs/Walk up hill Physical Exam Vital Signs Last Vital Signs Temp 36.8 C 09/13/18 23:00 Pulse 86 09/14/18 00:34 Resp 18 09/14/18 00:34 BP 139/88 09/14/18 00:34 Pulse Ox 98 09/14/18 00:34 ENMT Mouth: + chipped teeth; no TMJ abnormality and no TMJ clicking Thyromental Distance: < 3.5 Finger Breadths Mallampati Class: III Mouth / Teeth: 2 1. Chipped Neck + shortened thyromental distance; neck extension not limited Respiratory Auscultation: lungs clear to auscultation bilaterally Cardiovascular Rate/Rhythm: regular rate and regular rhythm Psychiatric Orientation: alert and oriented x 3 Testing Chest X-Ray Date: 09/13/18 Findings: + NAD Laboratory Results 09/13/18 21:20 09/13/18 23:33 Urine Color Dark Yellow 09/13/18 21:00 Urine Appearance Clear (Clear) 09/13/18 21:00 Urine pH 5.5 (4.5-7.5) 09/13/18 21:00 Ur Specific [place] 1.019 (1.000-1.030) 09/13/18 21:00 Urine Protein Negative (Negative) 09/13/18 21:00 Urine Glucose (UA) Negative (Negative) 09/13/18 21:00 Urine Ketones 1+ (Negative) H 09/13/18 21:00 Urine Nitrite Negative (Negative) 09/13/18 21:00 Ur Leukocyte Esterase Negative (Negative) 09/13/18 21:00
[2018-09-13] MEDS ORDERED: MIDAZOLAM HCL 1 MG/ML 2ML VIAL ONE (22:58)
[2018-09-13] MEDS ORDERED: PROPOFOL IV EMULSION 10 MG/ML 20 ML VIAL IV ONE (22:58)
[2018-09-13] MEDS ORDERED: fentaNYL citrate 100 MCG/2 ML VIAL ONE (22:58)
[2018-09-13] MEDS ORDERED: LIDOCAINE HCL 2% 2 ML VIAL/AMP(20MG/ML) INFIL ONE (22:58)
[2018-09-13] MEDS ORDERED: SUCCINYLCHOLINE CHLORIDE 20 MG/ML 10 ML VIAL ONE (23:03)
[2018-09-13] MEDS ORDERED: ONDANSETRON INJ 2 MG/ML 2 ML VIAL IV PRN (23:13)
[2018-09-13] MEDS ORDERED: ATROPINE SULFATE 0.1 MG/ML 10ML SYR IV PRN (23:13)
[2018-09-13] MEDS ORDERED: PROMETHAZINE HCL 12.5 MG in SODIUM CHLORIDE 0.9% 50 ML IV PRN (23:13)
[2018-09-13] MEDS ORDERED: ePHEDrine sulfate 50 MG/ML AMP IV PRN (23:13)
[2018-09-13] MEDS ORDERED: fentaNYL citrate 100 MCG/2 ML VIAL IV PRN (23:13)
[2018-09-13] MEDS ORDERED: HYDROmorphone INJ 1 MG/ML SYRINGE IV PRN (23:13)
[2018-09-13] MEDS ORDERED: PHENYLEPHRINE 100MCG/ML 5ML SYR IV PRN (23:13)
--- NOTE | 2018-09-13 23:13 | Surgery Consultation ---
Date of Consultation September 13, 2018 Assessment & Plan (1) Incarcerated umbilical hernia: pt is a 63 year old male who presents to ER with 2 days history of incarcerated umbilical hernia, IMP: incarcerated umbilical hernia, Plan, I recommend to do open repair umbilical hernia possible with mesh, D/W benefits, risks and alternatives of the surgery, the risks - infection, bleeding , hernia recurrence, complications relate to mesh, NC, DVT, stroke and . pt understood, he agrees with the surgery, I answered all questions, corect low Na, EKG, History of Present Illness History of Present Illness pt is a 63 year old male who presents to Er with 2 days history periumbilical pain with redness, pt has umbilical hernia for last 10 years, for last 2 days, pt could not reducible the umbilical hernia, with skin redness, and significant pain, pt could not touch the periumbilical area, with bulging, lump, pt denies fever, no diarrhea, but some nausea, no vomiting, pt has DM and HTN, pt denies chest pain, CT scan dx incarcerated umbilical hernia, Allergies Allergy/AdvReac Type Severity Reaction Status Date / Time tomato Allergy Mild SWELLING Verified 09/13/18 22:34 TONGUE EGG PLANT Allergy Intermediate SWELLING Uncoded 09/13/18 22:34 TONGUE YAN PEPPER Allergy Mild SWELLING Uncoded 09/13/18 22:34 TONGUE Home Medications Home Medications Medication Instructions Recorded Confirmed Type aspirin [Aspir-81] 81 mg PO DAILY 09/13/18 09/13/18 History glyburide 1.25 mg PO DAILY 09/13/18 09/13/18 History lisinopril [Zestril] 10 mg PO DAILY 09/13/18 09/13/18 History metformin [Glucophage] 850 mg PO TID 09/13/18 09/13/18 History pioglitazone [Actos] 45 mg PO DAILY 09/13/18 09/13/18 History simvastatin [Zocor] 20 mg PO QPM 09/13/18 09/13/18 History sitagliptin [Januvia] 100 mg PO DAILY 09/13/18 09/13/18 History Patient History Medical History Incarcerated umbilical hernia (Acute) No significant past medical history Hyponatremia Chronic Surgical History No significant past surgical history Family History Other Family history non-contributory Social History marital status: Current Living Situation: Spouse Feels Safe at Home: Yes Smoking Status: Never smoker Review of Systems Constitutional: as per Subjective / HPI Ear, Nose, Mouth, Throat: as per Subjective / HPI Respiratory: as per Subjective / HPI Cardiovascular: as per Subjective / HPI Gastrointestinal: as per Subjective / HPI umbilical hernia Genitourinary (Male): as per Subjective / HPI Musculoskeletal: as per Subjective / HPI Integumentary: as per Subjective / HPI Neurologic: as per Subjective / HPI Psychiatric: as per Subjective / HPI Endocrine: as per Subjective / HPI DM, low Na history Hematologic / Lymphatic: as per Subjective / HPI Physical Exam 2 Vital Signs (Past 24 Hours): Last Vital Signs Temp 36.8 C 09/13/18 23:00 Pulse 89 09/13/18 23:00 Resp 16 09/13/18 23:00 BP 174/101 H 09/13/18 23:00 Pulse Ox 98 09/13/18 23:00 Constitutional: WD/WN, vitals as above well developed and well nourished Neck: trachea midline, no thyromegaly Respiratory: normal respiratory effort, lungs clear to auscultation Cardiovascular: RRR, no murmur, no edema Rate/Rhythm: regular rate and regular rhythm Gastrointestinal (Abdomen): normal bowel sounds, soft, nontender, no hepatosplenomegaly Percussion/Palpation: + abdomen tender tenderness at umbilical area, with bulging and redness, size about [id number], no drainage Musculoskeletal: no cyanosis or clubbing, extremities motor strength 5/5 Neurologic: awake Psychiatric: Orientation: alert and oriented x 3 Results & Data Laboratory Results Abnormal lab results 09/13/18 09/13/18 09/13/18 Range/Units 21:00 21:20 21:20 Immature Gran # (Auto) 0.03 H (0.00-0.02) K/uL Lymph # (Auto) 0.83 L (1.2-3.4) K/uL Henry # (Auto) 0.93 H (0.11-0.59) K/uL Sodium 124 L (136-145) mmol/L Chloride 89 L (98-107) mmol/L Glucose 195 H (70-99) mg/dl AST 10 L (15-37) U/L Urine Ketones 1+ H (Negative) Diagnostic Findings ABDOMEN AND PELVIS CT WITH IV CONTRAST CT DOSE: 536.28 mGy.cm HISTORY: Acute periumbilical abdominal pain and swelling periumbilical swelling TECHNIQUE: Multiaxial CT images of the abdomen and pelvis were performed following the use of intravenous contrast. A dose lowering technique was utilized adhering to the principles of ALARA. COMPARISON STUDY: None. FINDINGS: Minimal subsegmental left basilar atelectasis. 5 mm solid nodule of the lateral basal segment right lower lobe, image 27 series 3. Additional 2 mm solid nodule right lower lobe is also seen. No pneumatosis or pneumoperitoneum. The imaged inferior cardiac chambers appear unremarkable. Gallbladder is mildly contracted. There is an indeterminate mildly hypodense lesion about the right hepatic lobe which measures 2.0 x 1.7 x 2.0 cm. Differential considerations would include hemangioma among other etiologies. Liver is otherwise unremarkable. No evidence of cirrhosis or intrahepatic biliary ductal dilation. Spleen, and pancreas appear unremarkable. Mild right and moderate left adrenal gland thickening. Mild nonspecific bilateral perinephric stranding. Focal area of cortical scarring and parenchymal thinning is noted about the interpolar right kidney and anterior aspect of the inferior pole. No ureteral calculi or obstructive uropathy. Partial distention of the urinary bladder with mild circumferential wall thickening. Mild prostamegaly. Small fat filled bilateral inguinal hernias. Moderate calcification of the aorta without aneurysm. No adenopathy. Small sliding-type hiatal hernia. No small bowel obstruction 12 mm lipoma involves the third portion of the duodenum. Colonic diverticulosis without acute diverticulitis. Moderate formed stool throughout the colon suggests constipation. Appendix appears normal. Fat filled periumbilical hernia is noted with diastases measuring 1.5 x 1.4 cm. Moderate infiltration of the surrounding periumbilical fat extends into the subcutaneous distribution. No focal fluid collection. Soft tissues are otherwise unremarkable. Bones appear intact. Multilevel facet arthrosis and spondylitic spurring. No suspicious lytic or blastic bony lesions. Hemangioma noted at the T12 and L4 levels. IMPRESSION: 1. Small fat filled periumbilical hernia. Moderate inflammatory stranding surrounding the hernia is suggestive of fat necrosis with reactive edema in the setting of a nonreducible hernia. 2. No bowel obstruction or focal bowel wall thickening. Normal appendix. 3. 5 mm solid nodule of the lateral basal segment right lower lobe. 4. Small sliding-type hiatal hernia. 5. Prostamegaly. 6. Mild colonic diverticulosis without acute diverticulitis. 7. Additional findings as above.
--- NOTE | 2018-09-13 23:18 | History & Physical Bridge Note ---
Date of Service September 13, 2018 History & Physical Bridge Note I have examined the patient, reviewed the History & Physical and in the interval since the performance of the History & Physical I have noted the following changes of clinical significance: no changes noted
[2018-09-13] MEDS ORDERED: LABETALOL HCL IV 5 MG/ML 20ML IV STA (23:20)
[2018-09-13] MEDS ORDERED: BACITRACIN OINT 15 GM TUBE ONE (23:20)
[2018-09-13] MEDS ORDERED: LIDOCAINE HCL 1% 20 ML VIAL ONE (23:20)
[2018-09-13] MEDS ORDERED: BUPIVACAINE 0.5 % 5 MG/1 ML MPF 30ML VIAL ONE (23:20)
[2018-09-14 00:06] LABS: Albumin Level 3.8 gm/dl (3.4-5.0); BUN Creatinine Ratio 9.8 (10-20); Calcium 8.7 mg/dl (8.5-10.1); Creatinine Clr Calc Pharmacy 61.8 ml/min; Est GFR (African American) 65.5; Est GFR (Non-African American) 56.5; Potassium 4.2 mmol/L (3.5-5.1)
[2018-09-14 00:09] LABS: Albumin Globulin Ratio 1.3 (0.9-2); Bilirubin,Total 0.6 mg/dl (0.2-1); Globulin 2.9 gm/dl (2.5-4.0); Total Protein 6.7 gm/dl (6.4-8.2)
[2018-09-14] MEDS ORDERED: CEFAZOLIN 2000MG 2,000 MG/15 ML SYR IV SCH (01:00)
[2018-09-14] MEDS ORDERED: ONDANSETRON INJ 2 MG/ML 2 ML VIAL ONE (01:22)
[2018-09-14] MEDS ORDERED: ROCURONIUM BROMIDE 10 MG/ML 5 ML VIAL ONE (01:22)
[2018-09-14] MEDS ORDERED: fentaNYL citrate 100 MCG/2 ML VIAL ONE (01:26)
[2018-09-14] MEDS ORDERED: NEOSTIGMINE METHYLSULFATE 5 MG/5 ML SYR ONE (01:30)
[2018-09-14] MEDS ORDERED: GLYCOPYRROLATE 0.2 MG/ML VIAL ONE (01:31)
--- NOTE | 2018-09-14 01:54 | Post Operative Brief Note ---
Immediate Post Op Note v1 Date of Surgery September 14, 2018 Pre & Post Diagnosis Operation Date: 09/13/18 22:55 Pre-Op Diagnosis: incarcerated umbilical hernia Post-Op Diagnosis: incarcerated umbilical hernia Procedure Operation Date: 09/13/18 22:55 Actual Procedures p Repair of Incarcerated Umbilical Hernia(Not Applicable) - Denys Bundy MD Surgeon Denys Bundy MD Cement Tester Assistant surgical instrument mechanic Estimated Blood Loss 10 Findings Consistent with Post-Op Diagnosis Fluids 900ml Specimens hernia sac, necrotic fat tissue Anesthesia Type General Complications none Disposition Accompanied Patient To Recovery: Yes Disposition: Recovery Room Overlapping Procedure I was immediately available: during the entire case.
[2018-09-14] MEDS ORDERED: ONDANSETRON INJ 2 MG/ML 2 ML VIAL IV PRN (01:59)
[2018-09-14] MEDS ORDERED: HYDROmorphone INJ 0.5 MG/0.5 ML SYR IV PRN (02:02)
[2018-09-14] MEDS ORDERED: OXYCODONE/ACETAMINOPHEN 5mg/325mg TAB PO PRN (02:02)
[2018-09-14] MEDS ORDERED: LABETALOL HCL IV 5 MG/ML 20ML IV PRN (02:28)
--- NOTE | 2018-09-14 03:16 | Anesthesiology Progress Note ---
Date of Service September 14, 2018 Anesthesia Post Procedure Vital Signs Vital Signs: Temp Pulse Pulse Resp BP BP Pulse Ox 09/14/18 02:40 86 16 158/95 H 96 09/14/18 02:35 87 16 165/99 H 94 09/14/18 02:30 36.7 C 89 17 158/101 H 98 09/14/18 02:25 36.7 C 84 16 153/95 H 96 09/14/18 02:20 36.7 C 87 17 169/100 H 100 09/14/18 02:16 36.7 C 87 17 168/93 H 100 09/14/18 02:15 36.7 C 90 16 184/104 H 100 09/14/18 00:34 86 18 139/88 98 09/14/18 00:15 78 18 143/90 H 97 09/14/18 00:00 79 18 148/90 H 98 09/13/18 23:50 85 16 154/98 H 97 09/13/18 23:47 89 16 182/98 H 98 09/13/18 23:00 36.8 C 89 16 174/101 H 98 09/13/18 20:15 36.6 C 105 H 18 202/112 H 99 Pain Intensity Abdomen: Pain Intensity: 2 Notes Mental Status: alert / awake / arousable Patient Amnestic to Procedure: Yes Nausea / Vomiting: adequately controlled Pain: adequately controlled Airway Patency, RR, SpO2: stable & adequate BP & HR: stable & adequate Hydration State: stable & adequate Anesthetic Complications: no major complications apparent
[2018-09-14] MEDS: SODIUM CHLORIDE 0.9% 1000ML 1,000 ML IV SCH ×2 (04:22→14:14)
[2018-09-14] MEDS: CEFAZOLIN 1000MG 1,000 MG/7.5 ML SYR IV SCH ×2 (05:45→14:14)
[2018-09-14 05:58] LABS: Basophils # (auto) 0.02 K/uL (0-0.2); Basophils % (auto) 0.3 %; Eosinophils # (auto) 0.17 K/uL (0-0.5); Eosinophils % (auto) 2.7 %; Hemoglobin 13.7 g/dL (14.0-18.0); Immature Granulocytes # (auto) 0.02 K/uL (0.00-0.02); Immature Granulocytes % (auto) 0.3 %; Lymphocytes # (auto) 0.85 K/uL (1.2-3.4); Lymphocytes % (auto) 13.6 %; Mean Corpuscular Hgb Conc 35.1 g/dL (32-36); Mean Corpuscular Volume 87.2 fL (80-100); Mean Platelet Volume 8.6 fL (7.4-10.4); Monocytes # (auto) 0.98 K/uL (0.11-0.59); Monocytes % (auto) 15.7 %; Neutrophils # (auto) 4.22 K/uL (1.4-6.5); Neutrophils % (auto) 67.4 %; Platelet Count 211 K/uL (130-400); RDW Coefficient of Variation 13.5 % (11.5-14.5); RDW Standard Deviation 43.1 fL (36.4-46.3); Red Blood Count 4.47 M/uL (4.7-6.1); White Blood Count 6.26 K/uL (4.8-10.8)
[2018-09-14 06:45] LABS: Albumin Globulin Ratio 1.2 (0.9-2); Albumin Level 3.4 gm/dl (3.4-5.0); BUN Creatinine Ratio 11.1 (10-20); Bilirubin,Total 0.5 mg/dl (0.2-1); Creatinine Clr Calc Pharmacy 89.3 ml/min; Est GFR (African American) 102.2; Est GFR (Non-African American) 88.2; Globulin 2.8 gm/dl (2.5-4.0); Total Protein 6.2 gm/dl (6.4-8.2)
[2018-09-14] MEDS ORDERED: LISINOPRIL 10 MG TAB PO SCH (09:00)
[2018-09-14] MEDS ORDERED: ASPIRIN 81 MG ECTAB PO SCH (09:00)
[2018-09-14] MEDS ORDERED: NURSING DECISION MEDICATION ONE (09:08)
[2018-09-14] MEDS ORDERED: COUGH DROP (SUGAR FREE) LOZ 24 LOZ/1 BOX BUCCAL ONE (09:19)
[2018-09-14] MEDS ORDERED: COUGH DROP (SUGAR FREE) LOZ 24 LOZ/1 BOX BUCCAL PRN (09:41)
[2018-09-14 10:17] LABS: INR 1.1 (0.9-1.1); Prothrombin Time 10.6 Seconds (9.0-12.0)
--- NOTE | 2018-09-14 10:28 | Operative Report ---
DATE OF OPERATION: 09/14/2018 PREOPERATIVE DIAGNOSIS: Incarcerated umbilical hernia. POSTOPERATIVE DIAGNOSIS: Incarcerated umbilical hernia. OPERATION: Open repair incarcerated umbilical hernia. SURGEON: Denys Bundy MD ANESTHESIA: General. ESTIMATED BLOOD LOSS: About 10 mL FINDINGS: Incarcerated umbilical hernia, necrosis fat tissue. COMPLICATIONS: None. INDICATIONS FOR THE PROCEDURE: This is a 63-year-old gentleman who presented to the ED with 2 days history of poor umbilical pain with bulging, redness, tenderness. The patient had a CT scan diagnosis of incarcerated umbilical hernia with necrosis fat tissue. I recommended to do the open repair incarcerated umbilical hernia, possible mesh. I did talk to the patient about the benefit, the risk, alternate procedure. I indicated the risks may include but not limited such as bleeding, infection, hernia recurrence, complication related to mesh, myocardial infarction, DVT, stroke, even . The patient understands and he signed informed consent. I answered all questions. DETAILS OF PROCEDURE: We brought the patient to the OR, put the patient in the supine position. The patient received SCD on bilateral legs to prevent DVT. Also, the patient received 2 g Ancef IV for prophylactic antibiotic. The patient received general anesthesia without difficulty. The abdomen was appropriately draped in routine sterile fashion. After time out, I injected the local anesthesia by using 1% lidocaine mixed with 0.5% Marcaine around the umbilical area and then I made about a 4 cm incision just below the umbilicus and then I mobilized the umbilicus and once opened the umbilicus sac, there is some necrosis fat tissue. We resected the necrosis fat tissue, rechecked no active bleeding. Then we found the patient had a small umbilical hernia. Hernia size about 0.8 x 0.8 cm, decided to use a #1 Ethibond interruptedly to close the hernia. Then the hernia closed nicely and also re-resected the hernia sac with necrosis fat tissue sent to pathology. Hemostasis was obtained. Then I used 2-0 Vicryl to reattach umbilical back to original location. Then I used 2-0 Vicryl, closed the subcutaneous layer, interruptedly and closed skin by using 4-0 Vicryl continuous running. Then we put the dressing on. The patient tolerated the procedure well. All the instrument, needle, and sponge count were correct x2 at the end of case. The patient transferred to the recovery room in stable condition. After procedure, the specimen sent to pathology. I attest to the content of the Intraoperative Record and any orders documented therein. Any exception s are noted below.
[2018-09-14 10:45] LABS: iSTAT Blood Urea Nitrogen 14 mg/dl (7-18); iSTAT Carbon Dioxide 25 mEq/l (24-31); iSTAT Ionized Calcium 1.17 mmol/l (1.12-1.32)
[2018-09-14] MEDS ORDERED: SITAGLIPTIN PHOSPHATE 100 MG TAB PO SCH (11:00)
[2018-09-14] MEDS ORDERED: ENOXAPARIN INJ 40 MG/0.4 ML SYR SQ SCH (11:00)
--- NOTE | 2018-09-14 11:15 | Surgery Progress Note ---
Date of Service September 14, 2018 Assessment & Plan (1) Incarcerated umbilical hernia: POD # 1 s/p repair of incarcerated umbilical hernia without mesh -vitals stable, afebrile - minimal post op pain - no n/v Plan: Discussed with pharmacy about diabetic medications. Holding metformin and gylburide given CT with contrast. Will receive januvia and one time dose of Lantus and he can resume his normal diabetic medication regimen tomorrow morning. Planning for discharge this afternoon diet advance to regular DM type 2 diet for lunch Discharge instructions reviewed Rx for Percocet prn pain f/u surgical office in [address] Bundy present during my examination. Subjective feeling good minimal pain no n/v, tolerated full liquids Physical Exam 2 Vital Signs (Past 24 Hours): Last Vital Signs Temp 36.5 C 09/14/18 06:28 Pulse 85 09/14/18 06:28 Resp 16 09/14/18 06:28 BP 154/78 H 09/14/18 06:28 Pulse Ox 98 09/14/18 06:28 Constitutional: WD/WN, vitals as above no acute distress Respiratory: normal respiratory effort; no respiratory distress Gastrointestinal (Abdomen): Inspection/Auscultation: abdomen normal to inspection; abdomen not distended Percussion/Palpation: + abdomen tender ( mild at incision site) and abdomen soft; no guarding and abdomen not rigid Skin: no rashes, warm and dry + incision (covered with dressing with some spotting present, incision not inspected) Psychiatric: A+Ox3, euthymic affect Results & Data Laboratory Results 09/14/18 09/14/18 09/14/18 Range/Units 09:54 08:04 05:46 WBC (4.8-10.8) K/uL RBC (4.7-6.1) M/uL Hgb (14.0-18.0) g/dL POC Hgb (14.0-18.0) g/dl Hct (42-52) % POC Hct (42-52) % MCV (80-100) fL MCH (25-34) pg MCHC (32-36) g/dL RDW Std Deviation (36.4-46.3) fL RDW Coeff of Kwesi (11.5-14.5) % Plt Count (130-400) K/uL MPV (7.4-10.4) fL Immature Gran % (Auto) % Neut % (Auto) % Lymph % (Auto) % [place] % (Auto) % Eos % (Auto) % Baso % (Auto) % Immature Gran # (Auto) (0.00-0.02) K/uL Neut # (Auto) (1.4-6.5) K/uL Lymph # (Auto) (1.2-3.4) K/uL [place] # (Auto) (0.11-0.59) K/uL Eos # (Auto) (0-0.5) K/uL Baso # (Auto) (0-0.2) K/uL PT 10.6 (9.0-12.0) Seconds INR 1.1 (0.9-1.1) POC Sodium (135-144) mEq/L Sodium 129 L (136-145) mmol/L POC Potassium (3.3-5.0) mEq/L Potassium 4.0 (3.5-5.1) mmol/L POC Chloride (101-112) mEq/L Chloride 95 L (98-107) mmol/L Carbon Dioxide 28 (21-32) mmol/L POC Total CO2 (24-31) mEq/l Anion Gap 7.0 (3-11) POC Anion Gap (16-25) mmol/L POC BUN (7-18) mg/dl BUN 10 (7-18) mg/dl Creatinine 0.92 D (0.6-1.4) mg/dl POC Creatinine (0.6-1.3) mg/dl Est Cr Clr Drug Dosing 89.3 ml/min Est GFR ( Amer) 102.2 Est GFR (Non-Af Amer) 88.2 BUN/Creatinine Ratio 11.1 (10-20) Glucose 174 H (70-99) mg/dl POC Glucose 156 H (70-99) POC Glucose (other) Calcium 8.0 L (8.5-10.1) mg/dl POC Ioniz Calcium Suraj (1.12-1.32) mmol/l Total Bilirubin 0.5 (0.2-1) mg/dl AST 13 L (15-37) U/L ALT 22 (12-78) U/L Alkaline Phosphatase 37 L (45-117) U/L Total Protein 6.2 L (6.4-8.2) gm/dl Albumin 3.4 (3.4-5.0) gm/dl Globulin 2.8 (2.5-4.0) gm/dl Albumin/Globulin Ratio 1.2 (0.9-2) Lipase (73-393) U/L Urine Color Urine Appearance (Clear) Urine pH (4.5-7.5) Ur Specific [place] (1.000-1.030) Urine Protein (Negative) Urine Glucose (UA) (Negative) Urine Ketones (Negative) Urine Blood (Negative) Urine Nitrite (Negative) Urine Bilirubin (Negative) Urine Urobilinogen (Negative) Ur Leukocyte Esterase (Negative) 09/14/18 09/13/18 09/13/18 Range/Units 05:46 23:33 21:20 WBC 6.26 (4.8-10.8) K/uL RBC 4.47 L (4.7-6.1) M/uL Hgb 13.7 L (14.0-18.0) g/dL POC Hgb (14.0-18.0) g/dl Hct 39.0 L (42-52) % POC Hct (42-52) % MCV 87.2 (80-100) fL MCH 30.6 (25-34) pg MCHC 35.1 (32-36) g/dL RDW Std Deviation 43.1 (36.4-46.3) fL RDW Coeff of Kwesi 13.5 (11.5-14.5) % Plt Count 211 (130-400) K/uL MPV 8.6 (7.4-10.4) fL Immature Gran % (Auto) 0.3 % Neut % (Auto) 67.4 % Lymph % (Auto) 13.6 % [place] % (Auto) 15.7 % Eos % (Auto) 2.7 % Baso % (Auto) 0.3 % Immature Gran # (Auto) 0.02 (0.00-0.02) K/uL Neut # (Auto) 4.22 (1.4-6.5) K/uL Lymph # (Auto) 0.85 L (1.2-3.4) K/uL [place] # (Auto) 0.98 H (0.11-0.59) K/uL Eos # (Auto) 0.17 (0-0.5) K/uL Baso # (Auto) 0.02 (0-0.2) K/uL PT (9.0-12.0) Seconds INR (0.9-1.1) POC Sodium (135-144) mEq/L Sodium 129 L 124 L (136-145) mmol/L POC Potassium (3.3-5.0) mEq/L Potassium 4.2 3.9 (3.5-5.1) mmol/L POC Chloride (101-112) mEq/L Chloride 95 L 89 L (98-107) mmol/L Carbon Dioxide 26 25 (21-32) mmol/L POC Total CO2 (24-31) mEq/l Anion Gap 8.0 10.0 (3-11) POC Anion Gap (16-25) mmol/L POC BUN (7-18) mg/dl BUN 13 14 (7-18) mg/dl Creatinine 1.33 D 0.90 (0.6-1.4) mg/dl POC Creatinine (0.6-1.3) mg/dl Est Cr Clr Drug Dosing 61.8 91.3 ml/min Est GFR ( Amer) 65.5 105.0 Est GFR (Non-Af Amer) 56.5 90.6 BUN/Creatinine Ratio 9.8 L 16.0 (10-20) Glucose 165 H 195 H (70-99) mg/dl POC Glucose (70-99) POC Glucose (other) Calcium 8.7 9.5 (8.5-10.1) mg/dl POC Ioniz Calcium Suraj (1.12-1.32) mmol/l Total Bilirubin 0.6 0.6 (0.2-1) mg/dl AST 10 L 10 L (15-37) U/L ALT 21 27 (12-78) U/L Alkaline Phosphatase 40 L 46 (45-117) U/L Total Protein 6.7 7.4 (6.4-8.2) gm/dl Albumin 3.8 4.2 (3.4-5.0) gm/dl Globulin 2.9 3.2 (2.5-4.0) gm/dl Albumin/Globulin Ratio 1.3 1.3 (0.9-2) Lipase 153 (73-393) U/L Urine Color Urine Appearance (Clear) Urine pH (4.5-7.5) Ur Specific [place] (1.000-1.030) Urine Protein (Negative) Urine Glucose (UA) (Negative) Urine Ketones (Negative) Urine Blood (Negative) Urine Nitrite (Negative) Urine Bilirubin (Negative) Urine Urobilinogen (Negative) Ur Leukocyte Esterase (Negative) 09/13/18 09/13/18 09/13/18 Range/Units 21:20 21:19 21:00 WBC 8.09 (4.8-10.8) K/uL RBC 4.95 (4.7-6.1) M/uL Hgb 15.0 (14.0-18.0) g/dL POC Hgb 15.0 (14.0-18.0) g/dl Hct 42.4 (42-52) % POC Hct 44 (42-52) % MCV 85.7 (80-100) fL MCH 30.3 (25-34) pg MCHC 35.4 (32-36) g/dL RDW Std Deviation 42.1 (36.4-46.3) fL RDW Coeff of Kwesi 13.5 (11.5-14.5) % Plt Count 243 (130-400) K/uL MPV 8.9 (7.4-10.4) fL Immature Gran % (Auto) 0.4 % Neut % (Auto) 74.9 % Lymph % (Auto) 10.3 % [place] % (Auto) 11.5 % Eos % (Auto) 2.7 % Baso % (Auto) 0.2 % Immature Gran # (Auto) 0.03 H (0.00-0.02) K/uL Neut # (Auto) 6.06 (1.4-6.5) K/uL Lymph # (Auto) 0.83 L (1.2-3.4) K/uL [place] # (Auto) 0.93 H (0.11-0.59) K/uL Eos # (Auto) 0.22 (0-0.5) K/uL Baso # (Auto) 0.02 (0-0.2) K/uL PT (9.0-12.0) Seconds INR (0.9-1.1) POC Sodium 127 L (135-144) mEq/L Sodium (136-145) mmol/L POC Potassium 4.0 (3.3-5.0) mEq/L Potassium (3.5-5.1) mmol/L POC Chloride 89 L (101-112) mEq/L Chloride (98-107) mmol/L Carbon Dioxide (21-32) mmol/L POC Total CO2 25 (24-31) mEq/l Anion Gap (3-11) POC Anion Gap 19.0 (16-25) mmol/L POC BUN 14 (7-18) mg/dl BUN (7-18) mg/dl Creatinine (0.6-1.4) mg/dl POC Creatinine 0.8 (0.6-1.3) mg/dl Est Cr Clr Drug Dosing ml/min Est GFR ( Amer) Est GFR (Non-Af Amer) BUN/Creatinine Ratio (10-20) Glucose (70-99) mg/dl POC Glucose (70-99) POC Glucose (other) TNP Calcium (8.5-10.1) mg/dl POC Ioniz Calcium Suraj 1.17 (1.12-1.32) mmol/l Total Bilirubin (0.2-1) mg/dl AST (15-37) U/L ALT (12-78) U/L Alkaline Phosphatase (45-117) U/L Total Protein (6.4-8.2) gm/dl Albumin (3.4-5.0) gm/dl Globulin (2.5-4.0) gm/dl Albumin/Globulin Ratio (0.9-2) Lipase (73-393) U/L Urine Color Dark Yellow Urine Appearance Clear (Clear) Urine pH 5.5 (4.5-7.5) Ur Specific [place] 1.019 (1.000-1.030) Urine Protein Negative (Negative) Urine Glucose (UA) Negative (Negative) Urine Ketones 1+ H (Negative) Urine Blood Negative (Negative) Urine Nitrite Negative (Negative) Urine Bilirubin Negative (Negative) Urine Urobilinogen Negative (Negative) Ur Leukocyte Esterase Negative (Negative)
[2018-09-14] MEDS ORDERED: LANTUS PER UNIT CHARGE SQ ONE (11:30)
[2018-09-14] MEDS ORDERED: SIMVASTATIN 20 MG TAB PO SCH (21:00)
[2018-09-15] MEDS ORDERED: glyBURIDE 2.5 MG TAB PO SCH (09:00)
[2018-09-15] MEDS ORDERED: PIOGLITAZONE HCL 15 MG TAB PO SCH (09:00)
[2018-09-15] MEDS ORDERED: METFORMIN HCL 850 MG TAB PO SCH (12:00)
== END 2018-09-14 14:41 | disposition home or self-care (01) ==
LOC: 3N 20:08 → ED 20:08 → 3N 09-14 00:34

== ENCOUNTER 2025-02-23 13:07 | Observation (INO) ==
--- NOTE | 2025-02-23 13:14 | Emergency Department Note ---
Impression & Plan Syncope, Tachycardia, Weakness, Contusion of head, Pulmonary nodule ED Provider Note NAME: ARGENIS IRVIN AGE: 69 SEX: M : 1955 ARRIVES VIA: Ambulance INFORMANT: Patient ED PROVIDER(S): Shin Calloway DO CHIEF COMPLAINT: Syncope HPI: Patient is a 69-year-old male who presents to the ER with a past medical history of prostate cancer for syncopal episode. He notes he was [place] and had walked about a mile and a half. He started feeling lightheaded sweaty and does not remember what happened after this. Per report he fell down and hit his head. There was couple seconds where he was out of it and then woke back up. He admits to a mild headache. No change or loss of vision. No chest pain or shortness of breath preceding or following the event. No belly pain. No nausea, vomiting, or diarrhea. No dysuria, urgency, or frequency. No other exacerbating or remitting factors. Patient also admits to a history of hyponatremia and hypertension. ADDITIONAL HISTORY OBTAINED: Per HPI Chronic Medical/Social Conditions Affecting Care: Per HPI PAST MEDICAL HISTORY:See Below PAST SURGICAL HISTORY:See Below FAMILY HISTORY:See Below SOCIAL HISTORY:See Below HOME MEDICATIONS:See Below ALLERGIES:See Below VITALS:See Below PHYSICAL EXAMINATION: GENERAL: alert, well appearing, well nourished, no distress, non-toxic HEAD: Contusion abrasion to the posterior occiput EYE EXAM: normal conjunctiva, PERRL and EOM's grossly intact OROPHARYNX: no exudate, no erythema, lips, buccal mucosa, and tongue normal and mucous membranes are moist NECK: supple, no nuchal rigidity, no adenopathy, non-tender CHEST: stable to compression anteriorly and posteriorly LUNGS: clear to auscultation. Normal chest wall mechanics HEART: no murmurs, S1 normal and S2 normal ABDOMEN: abdomen soft, non-tender, normo-active bowel sounds, no masses, no rebound or guarding. PELVIS: stable to compression anteriorly and posteriorly BACK: Back is symmetrical on inspection and there is no deformity, no midline tenderness, no CVA tenderness. UPPER EXTREMITIES: full active and passive range of motion of all joints without tenderness to palpation LOWER EXTREMITIES: full active and passive range of motion of all joints without tenderness to palpation NEURO EXAM: Normal sensorium, cranial nerves II-XII intact, normal speech, no weakness of arms, no weakness of legs. GCS: 15. MEDICAL DECISION MAKING: Patient is a 69-year-old male who presents ER for above-stated complaint. IV was established and blood work was obtained. Labs show no significant leukocytosis or anemia. BMP with hyponatremia 128 fairly consistent with previous. Chloride 93. LFTs and bilirubin were reassuring. Troponins were negative. Lipase was unremarkable. CT head and cervical spine was negative. Chest x-ray was unremarkable. Patient was given IV fluids. Updated bedside. Consults/Care Managements Discussions: Per [facility] Triage Nursing notes reviewed. Limited review of prior medical records performed Vital Signs: reviewed and remarkable for no significant abnormalities Differential diagnosis: Differential diagnosis includes etiologies such as vasovagal event, infection, hypoglycemia, electrolyte abnormalities, cardiac sources, intracerebral event, toxicologic, neurologic, as well as others were entertained. ER treatment provided: See below Diagnostics interpreted by me include EKG and cardiac monitoring as listed below: -Cardiac Monitoring: An order was placed for continuous cardiac monitoring. The monitor shows a rate of 101 with sinus rhythm. -ECG: Sinus tachycardia rate of 106 Normal axis No PVCs QTc 459 -Laboratory studies:Interpreted by me as stated above in MDM and shown below. Imaging studies: Xrays: As interpreted by me: Portable AP upright 1 view of the chest shows no focal Lutrate CTs show: CT head and cervical spine were negative per radiology Procedures:none Critical Care: None Past Med/Surg History Problem List (Updated 02/23/25 @ 18:22 by Shin Calloway DO) Pulmonary nodule (Acute) Contusion of head (Acute) Weakness (Acute) Tachycardia (Acute) Syncope (Acute) Prostate cancer Elevated prostate specific antigen (PSA) Medical History Hyperlipidemia Diabetes mellitus Hypertension Incarcerated umbilical hernia Hyponatremia Surgical History S/P colonoscopy H/O shoulder surgery Family History Other Family history non-contributory Social History (Updated 10/12/24 @ 10:56 by Maye Leiva LPN) Smoking Status: Never smoker Second Hand Exposure: Yes (As a child.); Do You Dip or Chew Tobacco: No; Hx Alcohol Use: Yes Alcohol type: wine Hx Substance Use: No Preferred Language: Taiwanese Communication Ability: Effective Visual Impairment: No Limitations Hearing Ability: Normal Alumni Relations Officer Required: No Beliefs That Will Affect Care: None marital status: Current Living Situation: Spouse current occupational status: retired 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 How many Children do You have: 0 Feels Safe at Home: Yes Diet: diabetic and low carbohydrate caffeine: Yes (3 coffees daily) Dental Care, Regularly: Yes Physical Activity Frequency: Does not Exercise Seatbelt Use: always Do you think of yourself as: straight/heterosexual Gender Identity: Male Assistive Devices: Glasses Allergies Allergies Allergy/AdvReac Type Severity Reaction Status Date / Time pepper (genus Capsicum) Allergy Mild Swelling Verified 10/12/24 10:51 of Lip/Tongue/Throat tomato Allergy Mild SWELLING Verified 10/12/24 10:51 TONGUE EGG PLANT Allergy Intermediate SWELLING Uncoded 10/12/24 10:51 TONGUE Home Meds Home Medications Medication Instructions Recorded Confirmed cetirizine 10 mg capsule (Zyrtec) 10 mg PO DAILY PRN Allergy Symptoms 01/21/23 02/23/25 Cbd 25 mg PO UD PRN Anxiety 02/23/25 02/23/25 aspirin 81 mg tablet,delayed 81 mg PO HS 02/23/25 02/23/25 release furosemide 20 mg tablet 20 mg PO QDL 02/23/25 02/23/25 lisinopril 40 mg tablet 40 mg PO HS 02/23/25 02/23/25 metformin 850 mg tablet 850 mg PO TID 02/23/25 02/23/25 pioglitazone 45 mg tablet (Actos) 45 mg PO QAM 02/23/25 02/23/25 semaglutide 2 mg/dose (8 mg/3 mL) 2 mg subcut WK 02/23/25 02/23/25 subcutaneous pen injector (Ozempic) simvastatin 20 mg tablet 20 mg PO HS 02/23/25 02/23/25 sodium chloride 1,000 mg soluble 1,000 mg PO QAM 02/23/25 02/23/25 tablet vitamin B complex 1 tab PO QAM 02/23/25 02/23/25 Results & Data (ED) Vital Signs Vital Signs - 24 hr 02/23/25 13:11 02/23/25 13:17 02/23/25 13:18 Temperature 37.6 C H Temperature Source Oral Pulse Rate 106 H 104 H 104 H Pulse Rate [Apical] Pulse Rhythm Regular Pulse Rhythm [Apical] Respiratory Rate 16 18 Respiratory Effort / Characteristics Respiratory Depth Normal Respiratory Pattern Blood Pressure 181/99 H Blood Pressure [Right Arm] Blood Pressure Mean 126 Blood Pressure Mean [Right Arm] Blood Pressure Position [Right Arm] Pulse Oximetry 98 97 Oxygen Delivery Method Room Air Room Air Sepsis Recent Fever Within 48 Hours No Sepsis New/Unexplained Change in Mental Status N/A Sepsis Action Taken by Nursing No Action Required 02/23/25 14:45 02/23/25 16:48 02/23/25 17:23 Temperature Temperature Source Pulse Rate 96 H Pulse Rate [Apical] 112 H 99 H Pulse Rhythm Pulse Rhythm [Apical] Regular Respiratory Rate 16 17 Respiratory Effort / Characteristics Non-Labored Spontaneous Respiratory Depth Normal Respiratory Pattern Regular Blood Pressure Blood Pressure [Right Arm] 173/99 H 189/103 H Blood Pressure Mean Blood Pressure Mean [Right Arm] 123 131 Blood Pressure Position [Right Arm] Semi-fowlers Pulse Oximetry 97 99 Oxygen Delivery Method Room Air Room Air Sepsis Recent Fever Within 48 Hours Sepsis New/Unexplained Change in Mental Status Sepsis Action Taken by Nursing 02/23/25 18:12 Temperature Temperature Source Pulse Rate 93 H Pulse Rate [Apical] Pulse Rhythm Pulse Rhythm [Apical] Respiratory Rate 15 Respiratory Effort / Characteristics Respiratory Depth Respiratory Pattern Blood Pressure 170/109 H Blood Pressure [Right Arm] Blood Pressure Mean Blood Pressure Mean [Right Arm] Blood Pressure Position [Right Arm] Pulse Oximetry 100 Oxygen Delivery Method Room Air Sepsis Recent Fever Within 48 Hours Sepsis New/Unexplained Change in Mental Status Sepsis Action Taken by Nursing Laboratory Data 02/23/25 13:12 02/23/25 13:12 Lab Results 02/23/25 02/23/25 Range/Units 13:12 13:15 WBC 5.78 (4.8-10.8) K/ul RBC 4.45 L (4.70-6.10) M/uL Hgb 13.8 L (14.0-18.0) g/dl POC Hgb 13.3 L (14.0-18.0) g/dl Hct 37.9 L (42.0-52.0) % POC Hct 39 L (42-52) % MCV 85.2 (80.0-100.0) fL MCH 31.0 (25.0-34.0) pg MCHC 36.4 H (32.0-36.0) g/dL RDW Std Deviation 42.2 (36.4-46.3) fL RDW Coeff of Kwesi 13.6 (11.5-14.5) % Plt Count 224 (130-400) K/uL MPV 9.5 (9.4-12.4) fL Immature Gran % (Auto) 0.7 % Neut % (Auto) 58.3 % Lymph % (Auto) 27.5 % [place] % (Auto) 11.6 % Eos % (Auto) 1.4 % Baso % (Auto) 0.5 % Neut # (Auto) 3.37 (1.40-6.50) K/uL Lymph # (Auto) 1.59 (1.20-3.40) K/uL [place] # (Auto) 0.67 H (0.11-0.59) K/uL Eos # (Auto) 0.08 (0.00-0.50) K/uL Baso # (Auto) 0.03 (0.00-0.20) K/uL Immature Gran # (Auto) 0.04 (0.01-0.20) K/uL POC Sodium 128 L (135-144) mmol/L Sodium 128 L (136-145) mmol/L POC Potassium 4.1 (3.3-5.0) mmol/L Potassium 4.2 (3.5-5.1) mmol/L POC Chloride 92 L (101-112) mmol/L Chloride 93 L (98-107) mmol/L Carbon Dioxide 24 (21-32) mmol/L POC Total CO2 25 (24-31) mmol/L Anion Gap 11 (3-11) POC Anion Gap 16.0 (16-25) mmol/L POC BUN 14 (7-18) mg/dl BUN 16 (6-23) mg/dl Creatinine 0.81 (0.6-1.4) mg/dl POC Creatinine 0.8 (0.6-1.3) mg/dl Est Cr Clr Drug Dosing 83.3 ml/min eGFR 95.44 BUN/Creatinine Ratio 19.8 (10-20) Glucose 266 H (70-99(Fasting)) mg/dl POC Glucose (other) 267 H (70-99) mg/dl Calcium 9.2 (8.6-10.3) mg/dl POC Ioniz Calcium Suraj 1.15 (1.12-1.32) mmol/l Total Bilirubin 0.8 (0.2-1.0) mg/dl AST 15 (13-39) U/L ALT 13 (7-52) U/L Alkaline Phosphatase 36 (34-104) U/L Total Creatine Kinase 49 (30-223) U/L Troponin I High Sens 3.2 (0-20) pg/ml Total Protein 6.4 (6.0-8.3) gm/dl Albumin 4.4 (3.4-5.0) gm/dl Globulin 2.0 L (2.5-4.0) gm/dl Albumin/Globulin Ratio 2.2 H (0.9-2) Lipase 45 (11-82) U/L Administered Medications Discontinued Medications Sodium Chloride (Nss) 1,000 mls @ 999 mls/hr IV .Q1H1M ONE Stop: 02/23/25 14:14 Last Infusion: 02/23/25 14:18 Dose: Infused Documented By: Admin: 02/23/25 13:17 Dose: 999 mls/hr Documented By: ANT Sodium Chloride (Nss) 1,000 mls @ 999 mls/hr IV .Q1H1M ONE Stop: 02/23/25 16:02 Last Infusion: 02/23/25 16:04 Dose: Infused Documented By: Admin: 02/23/25 15:11 Dose: 999 mls/hr Documented By: AVM Imaging Data Radiologist's Impression: Chest X-Ray 02/23/25 13:13 SINGLE VIEW CHEST CLINICAL HISTORY: Chest pain FINDINGS: An AP, portable, upright chest radiograph is compared to study dated 09/13/2018. The heart is top retraction. Chronic interstitial thickening similar to previous. There is mild bibasilar scarring/atelectasis. No airspace consolidation or large pleural effusion is identified. No pneumothorax is seen. The skeletal structures are osteopenic. There is a chronic/healed right-sided rib fracture. A left shoulder arthroplasty is in place. IMPRESSION: No acute acute cardiopulmonary abnormality is identified. ACT 112: Negative or not required by law. Electronically signed by: Yonathan Michelle M.D. 02/23/2025 1:[address] 02/23/25 13:14 CT SCAN OF THE CERVICAL SPINE CLINICAL HISTORY: Fall. COMPARISON STUDY: None. TECHNIQUE: CT scan of the cervical spine is performed from the skull base to the upper thoracic spine. Images are reviewed in the axial, sagittal, and coronal planes. IV contrast was not administered for this examination. A dose lowering technique was utilized adhering to the principles of ALARA. CT DOSE: 1168.38 mGy.cm FINDINGS: Skeletal structures: There is no evidence of fracture or subluxation involving the cervical spine. Vertebral body height and alignment are maintained. The odontoid process and lateral masses are intact. The atlantoaxial articulation is preserved. The spinous processes appear intact. Moderate multilevel disc space narrowing, endplate osteophytosis and facet arthrosis within the cervical spine are noted. Soft tissues: The prevertebral and paraspinous soft tissues are within normal limits. Calvarium: The visualized calvarium at the skull base appears intact. Brain parenchyma: Partially visualized brain parenchyma at the skull base is within normal limits. Lung apices: Clear as visualized. An old proximal right humeral fracture on the propeller mechanic image is incidentally noted. A 2.4 x 2.1 cm right apical pleural density on image [phone] of [phone] is partially imaged IMPRESSION: 1. No acute cervical spine fracture or subluxation. 2. 2.4 x 2.1 cm right apical pleural density, partially imaged on this exam. Although not highly suspicious, this is indeterminate and a nonemergent chest CT is recommended for further evaluation. ACT 112: Negative or not required by law. Electronically signed by: Bean Laws M.D. 02/23/2025 1:[address] 02/23/25 13:14 CT SCAN OF THE BRAIN WITHOUT IV CONTRAST CLINICAL HISTORY: Fall COMPARISON STUDY: No priors TECHNIQUE: Unenhanced axial CT scan of the brain is performed from the vertex to the skull base. Images are reviewed in the axial, sagittal, coronal planes. A dose lowering technique was utilized adhering to the principles of ALARA. FINDINGS: Brain parenchyma: There is age-related involutional change noting mild subcortical and periventricular microangiopathic disease. There is no hemorrhage, mass effect, or evidence of acute territorial ischemia by CT criteria. Mckeon-white matter differentiation is preserved. No extra-axial fluid collection is seen. Ventricles, sulci, cisterns: Prominent secondary to involutional change. Intracranial vasculature: There is atherosclerotic calcification of the cavernous carotid and vertebral arteries. Calvarium: The skeletal structures are osteopenic. No depressed calvarial fracture is seen. Soft tissues: There is a large scalp hematoma at the posterior vertex. Sinuses and mastoids: The visualized paranasal sinuses are clear. There is a small left mastoid effusion. The right mastoid air cells are well pneumatized. Orbits: The bony orbits are grossly intact. IMPRESSION: 1. There is no hemorrhage, mass effect, or evidence of acute territorial ischemia by CT criteria. 2. Scalp hematoma at the posterior vertex. ACT 112: Negative or not required by law. Electronically signed by: Yonathan Michelle M.D. 02/23/2025 2:03 PM Discharge Plan Visit Data Chief Complaint: Syncope (Near Syncope) Stated Complaint: SYNCOPE, FALL ED Provider: Shin Calloway Discharge Problem: Syncope, Tachycardia, Weakness, Contusion of head, Pulmonary nodule Patient Disposition: Admitted As Inpatient Condition: Fair Discharge Instructions Interventions: ED Discharge Assessment Last Done: 02/23/25 18:12 Forms Stand Alone Forms: [employer] Prescriptions Prescriptions: No Action Zyrtec 10 mg capsule 10 mg PO DAILY PRN (Reason: Allergy Symptoms) aspirin [Aspirin Low-Strength] 81 mg Tablet,Delayed Release (Dr/Ec) 81 mg PO HS furosemide 20 mg Tablet 20 mg PO QDL lisinopril 40 mg Tablet 40 mg PO HS metformin 850 mg Tablet 850 mg PO TID simvastatin 20 mg Tablet 20 mg PO HS sodium chloride 1,000 mg Tablet,Soluble 1,000 mg PO QAM pioglitazone [Actos] 45 mg Tablet 45 mg PO QAM vitamin B complex Tablet 1 tab PO QAM Ozempic 2 mg/dose (8 mg/3 mL) Pen Injector 2 mg SUBCUT WK Rx Instructions: saturdays Cbd 25 mg PO UD PRN (Reason: Anxiety) Referrals Referrals: Zaida Hollis MD [Outside Practitioners] - Discharge Problem: Syncope Qualifiers: Syncope type: unspecified Qualified Code(s): R55 - Syncope and collapse Contusion of head Qualifiers: Encounter type: initial encounter Contusion of head detail: unspecified part of head Qualified Code(s): S00.93XA - Contusion of unspecified part of head, initial encounter
[2025-02-23] MEDS: SODIUM CHLORIDE 0.9% 1,000 ML IV ONE ×2 (13:17→15:11)
[2025-02-23 13:25] LABS: Hematocrit (blood only) 37.9 % (42.0-52.0); Hemoglobin 13.8 g/dl (14.0-18.0); Immature Granulocytes # (auto) 0.04 K/uL (0.01-0.20); Immature Granulocytes % (auto) 0.7 %; Mean Corpuscular Hemoglobin 31.0 pg (25.0-34.0); Mean Corpuscular Volume 85.2 fL (80.0-100.0); Platelet Count 224 K/uL (130-400); RDW Standard Deviation 42.2 fL (36.4-46.3); Red Blood Count 4.45 M/uL (4.70-6.10); White Blood Count 5.78 K/ul (4.8-10.8)
--- NOTE | 2025-02-23 13:42 | XRay Report ---
SINGLE VIEW CHEST CLINICAL HISTORY: Chest pain FINDINGS: An AP, portable, upright chest radiograph is compared to study dated 09/13/2018. The heart i s top retraction. Chronic interstitial thickening similar to previous. There is mild bibasilar scarri ng/atelectasis. No airspace consolidation or large pleural effusion is identified. No pneumothorax is seen. The skeletal structures are osteopenic. There is a chronic/healed right-sided rib fracture. A left shoulder arthroplasty is in place. IMPRESSION: No acute acute cardiopulmonary abnormality is identified. ACT 112: Negative or not required by law. Electronically signed by: Yonathan Michelle M.D. 02/23/2025 1:41 PM
[2025-02-23 13:44] LABS: Alanine Aminotransferase 13.0 U/L (7-52); Albumin Globulin Ratio 2.2 (0.9-2); Alkaline Phosphatase 36.0 U/L (34-104); Anion Gap 11.0 (3-11); Bilirubin,Total 0.8 mg/dl (0.2-1.0); Blood Urea Nitrogen 16.0 mg/dl (6-23); Calcium 9.2 mg/dl (8.6-10.3); Carbon Dioxide 24.0 mmol/L (21-32); Chloride 93.0 mmol/L (98-107); Creatine Kinase 49.0 U/L (30-223); Creatinine Clr Calc Pharmacy 83.3 ml/min; Globulin 2.0 gm/dl (2.5-4.0); Glucose 266.0 mg/dl (70-99(Fasting)); Lipase 45.0 U/L (11-82); Potassium 4.2 mmol/L (3.5-5.1); Sodium 128.0 mmol/L (136-145); Total Protein 6.4 gm/dl (6.0-8.3)
--- NOTE | 2025-02-23 13:57 | CT Scan Report ---
CT SCAN OF THE CERVICAL SPINE CLINICAL HISTORY: Fall. COMPARISON STUDY: None. TECHNIQUE: CT scan of the cervical spine is performed from the skull base to the upper thoracic spine . Images are reviewed in the axial, sagittal, and coronal planes. IV contrast was not administered fo r this examination. A dose lowering technique was utilized adhering to the principles of ALARA. CT DOSE: 1168.38 mGy.cm FINDINGS: Skeletal structures: There is no evidence of fracture or subluxation involving the cervical spine. Ve rtebral body height and alignment are maintained. The odontoid process and lateral masses are intact . The atlantoaxial articulation is preserved. The spinous processes appear intact. Moderate multileve l disc space narrowing, endplate osteophytosis and facet arthrosis within the cervical spine are note d. Soft tissues: The prevertebral and paraspinous soft tissues are within normal limits. Calvarium: The visualized calvarium at the skull base appears intact. Brain parenchyma: Partially visualized brain parenchyma at the skull base is within normal limits. Lung apices: Clear as visualized. An old proximal right humeral fracture on the waste/materials exchange specialist image is incide ntally noted. A 2.4 x 2.1 cm right apical pleural density on image [id number] of [id number] is partially imaged IMPRESSION: 1. No acute cervical spine fracture or subluxation. 2. 2.4 x 2.1 cm right apical pleural density, partially imaged on this exam. Although not highly susp icious, this is indeterminate and a nonemergent chest CT is recommended for further evaluation. ACT 112: Negative or not required by law. Electronically signed by: Bean Laws M.D. 02/23/2025 1:55 PM
--- NOTE | 2025-02-23 14:04 | CT Scan Report ---
CT SCAN OF THE BRAIN WITHOUT IV CONTRAST CLINICAL HISTORY: Fall COMPARISON STUDY: No priors TECHNIQUE: Unenhanced axial CT scan of the brain is performed from the vertex to the skull base. Imag es are reviewed in the axial, sagittal, coronal planes. A dose lowering technique was utilized adheri ng to the principles of ALARA. FINDINGS: Brain parenchyma: There is age-related involutional change noting mild subcortical and periventricula r microangiopathic disease. There is no hemorrhage, mass effect, or evidence of acute territorial isc hemia by CT criteria. Mckeon-white matter differentiation is preserved. No extra-axial fluid collection is seen. Ventricles, sulci, cisterns: Prominent secondary to involutional change. Intracranial vasculature: There is atherosclerotic calcification of the cavernous carotid and vertebr al arteries. Calvarium: The skeletal structures are osteopenic. No depressed calvarial fracture is seen. Soft tissues: There is a large scalp hematoma at the posterior vertex. Sinuses and mastoids: The visualized paranasal sinuses are clear. There is a small left mastoid effus ion. The right mastoid air cells are well pneumatized. Orbits: The bony orbits are grossly intact. IMPRESSION: 1. There is no hemorrhage, mass effect, or evidence of acute territorial ischemia by CT criteria. 2. Scalp hematoma at the posterior vertex. ACT 112: Negative or not required by law. Electronically signed by: Yonathan Michelle M.D. 02/23/2025 2:03 PM
--- NOTE | 2025-02-23 15:27 | History & Physical Report ---
Date of Service February 23, 2025 Assessment & Plan (1) Syncope: (2) Hyponatremia: (3) Hypertension: (4) Diabetes mellitus: (5) Hyperlipidemia: Plan 69 year old male presents to the ER with a syncopal event in association to prolonged walking, heat and knee/hip pain #Syncope / fall Most likely vasovagal secondary to heat, walking, not keeping up with oral intake, pain from knees/hips However given lack of prodromal symptoms will monitor overnight on telemetry for arrhythmia Only apparent injury from fall is posterior scalp hematoma, monitor for concussion symptoms No change to antihypertensives given no symptoms prior to this epidose #Hyponatremia Appears to be at his baseline even with elevated glucose levels, do not think this is the cause of his syncope Continue salt tabs #T2DM HbA1C 6.7 [06/2024] Continue metformin and Actos Ozempic can be restarted at home Add Novolog for correction only: --Goal BSG Range: Low 110 mg/dL, High 140 mg/dL --Correction Factor: 45 mg/dL/unit no carb ratio --BSGs ACHS if eating, q6h if npo #Hypertension Continue furosemide and lisinopril #Hyperlipidemia Continue simvastatin VTE Prophylaxis - low risk Disposition - observation to med/tele Admission and Anticipated Discharge Date Admission Date: February 23, 2025 History of Present Illness Chief Complaint: Syncope Primary Care Provider: Mary Carmen Wing Martell Llamas is a 69 year old male who presents to the ER with syncope. He was at [employer] today and waled 1.5 miles while not drinking enough and hip and knees were hurting. He reports his knees locked up and he went to the ground and although he doesn't remember people around him told him that he lost consciousness but perhaps for only a few seconds. He denies feeling lightheaded, dizzy, chest pain, short of breath or nauseous prior to falling. No other syncopal episode in the last year. He currently feels back to his normal self. He is unsure what his glucose was measured at by EMS but reports not being given anything to eat prior to the ER. Allergies Allergy/AdvReac Type Severity Reaction Status Date / Time pepper (genus Capsicum) Allergy Mild Swelling Verified 10/12/24 10:51 of Lip/Tongue/Throat tomato Allergy Mild SWELLING Verified 10/12/24 10:51 TONGUE EGG PLANT Allergy Intermediate SWELLING Uncoded 02/27/25 10:51 TONGUE Home Medications Medication Instructions Recorded Confirmed Type cetirizine 10 mg capsule (Zyrtec) 10 mg PO DAILY PRN Allergy Symptoms 01/21/23 02/23/25 History Cbd 25 mg PO UD PRN Anxiety 02/23/25 02/23/25 History aspirin 81 mg tablet,delayed 81 mg PO HS 02/23/25 02/23/25 History release furosemide 20 mg tablet 20 mg PO QDL 02/23/25 02/23/25 History lisinopril 40 mg tablet 40 mg PO HS 02/23/25 02/23/25 History metformin 850 mg tablet 850 mg PO TID 02/23/25 02/23/25 History pioglitazone 45 mg tablet (Actos) 45 mg PO QAM 02/23/25 02/23/25 History semaglutide 2 mg/dose (8 mg/3 mL) 2 mg subcut WK 02/23/25 02/23/25 History subcutaneous pen injector (Ozempic) simvastatin 20 mg tablet 20 mg PO HS 02/23/25 02/23/25 History sodium chloride 1,000 mg soluble 1,000 mg PO QAM 02/23/25 02/23/25 History tablet vitamin B complex 1 tab PO QAM 02/23/25 02/23/25 History Past Med/Surg History Problem List (Updated 02/23/25 @ 18:22 by Shin Calloway DO) Pulmonary nodule (Acute) Contusion of head (Acute) Weakness (Acute) Tachycardia (Acute) Syncope (Acute) Prostate cancer Elevated prostate specific antigen (PSA) Medical History Hyperlipidemia Diabetes mellitus Hypertension Incarcerated umbilical hernia Hyponatremia Surgical History S/P colonoscopy H/O shoulder surgery Family History Other Family history non-contributory Social History (Updated 10/12/24 @ 10:56 by Maye Leiva LPN) Smoking Status: Never smoker Second Hand Exposure: Yes (As a child.); Do You Dip or Chew Tobacco: No; Hx Alcohol Use: Yes Alcohol type: wine Hx Substance Use: No Preferred Language: Occitan Communication Ability: Effective Visual Impairment: No Limitations Hearing Ability: Normal [employer] Ax Consultant Required: No Beliefs That Will Affect Care: None marital status: Current Living Situation: Spouse current occupational status: retired 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 How many Children do You have: 0 Other Information That Helps Us Care for You: No Feels Safe at Home: Yes Safety Concerns: Feels Safe At This Time Diet: diabetic and low carbohydrate caffeine: Yes (3 coffees daily) Dental Care, Regularly: Yes Physical Activity Frequency: Does not Exercise Seatbelt Use: always Do you think of yourself as: straight/heterosexual Gender Identity: Male Assistive Devices: Glasses Review of Systems Review of Systems: All systems reviewed & are unremarkable except as noted in HPI & below Physical Exam Constitutional: WD/WN, vitals as above ENMT: external ear and nose normal, oropharynx normal Respiratory: normal respiratory effort, lungs clear to auscultation Cardiovascular: RRR, no murmur, no edema Gastrointestinal (Abdomen): normal bowel sounds, soft, nontender, no hepatosplenomegaly Musculoskeletal: no cyanosis or clubbing, extremities motor strength 5/5 Skin: no rashes, warm and dry (posterior scalp hematoma present) Neurologic: CN's II-XI intact bilaterally, moves all extremities and awake; no focal motor deficits and not confused Speech / Cognition: normal speech Psychiatric: A+Ox3, euthymic affect Results & Data Results & Data Vital Signs (Past 12 Hours) Vital Signs Temp Pulse Pulse Resp BP BP Pulse Ox 02/23/25 14:45 112 H 16 173/99 H 97 02/23/25 13:18 104 H 02/23/25 13:17 104 H 18 97 02/23/25 13:11 37.6 C H 106 H 16 181/99 H 98 O2 Del Method 02/23/25 14:45 Room Air 02/23/25 13:18 02/23/25 13:17 Room Air 02/23/25 13:11 Room Air Laboratory Results Abnormal lab results 02/23/25 02/23/25 Range/Units 13:12 13:15 RBC 4.45 L (4.70-6.10) M/uL Hgb 13.8 L (14.0-18.0) g/dl POC Hgb 13.3 L (14.0-18.0) g/dl Hct 37.9 L (42.0-52.0) % POC Hct 39 L (42-52) % MCHC 36.4 H (32.0-36.0) g/dL [place] # (Auto) 0.67 H (0.11-0.59) K/uL POC Sodium 128 L (135-144) mmol/L Sodium 128 L (136-145) mmol/L POC Chloride 92 L (101-112) mmol/L Chloride 93 L (98-107) mmol/L Glucose 266 H (70-99(Fasting)) mg/dl POC Glucose (other) 267 H (70-99) mg/dl Globulin 2.0 L (2.5-4.0) gm/dl Albumin/Globulin Ratio 2.2 H (0.9-2) Diagnostic Findings CT SCAN OF THE BRAIN WITHOUT IV CONTRAST CLINICAL HISTORY: Fall COMPARISON STUDY: No priors TECHNIQUE: Unenhanced axial CT scan of the brain is performed from the vertex to the skull base. Images are reviewed in the axial, sagittal, coronal planes. A d ose lowering technique was utilized adhering to the principles of RAMSEY. FINDINGS: Brain parenchyma: There is age-related involutional change noting mild subcortical and periventricular microangiopathic disease. There is no hemorrhage, mass effect, or evidence of acute territorial ischemia by CT criteria. Mckeon-white matter differentiation is preserved. No extra-axial fluid collection is seen. Ventricles, sulci, cisterns: Prominent secondary to involutional change. Intracranial vasculature: There is atherosclerotic calcification of the cavernous carotid and vertebral arteries. Calvarium: The skeletal structures are osteopenic. No depressed calvarial fracture is seen. Soft tissues: There is a large scalp hematoma at the posterior vertex. Sinuses and mastoids: The visualized paranasal sinuses are clear. There is a small left mastoid effusion. The right mastoid air cells are well pneumatized. Orbits: The bony orbits are grossly intact. IMPRESSION: 1. There is no hemorrhage, mass effect, or evidence of acute territorial ischemia by CT criteria. 2. Scalp hematoma at the posterior vertex. CT SCAN OF THE CERVICAL SPINE CLINICAL HISTORY: Fall. COMPARISON STUDY: None. TECHNIQUE: CT scan of the cervical spine is performed from the skull base to the upper thoracic spine. Images are reviewed in the axial, sagittal, and coronal planes. IV contrast was not administered for this examination. A dose lowering technique was utilized adhering to the principles of ALARA. CT DOSE: 1168.38 mGy.cm FINDINGS: Skeletal structures: There is no evidence of fracture or subluxation involving the cervical spine. Vertebral body height and alignment are maintained. The odontoid process and lateral masses are intact. The atlantoaxial articulation is preserved. The spinous processes appear intact. Moderate multilevel disc space narrowing, endplate osteophytosis and facet arthrosis within the cervical spine are noted. Soft tissues: The prevertebral and paraspinous soft tissues are within normal limits. Calvarium: The visualized calvarium at the skull base appears intact. Brain parenchyma: Partially visualized brain parenchyma at the skull base is within normal limits. Lung apices: Clear as visualized. An old proximal right humeral fracture on the net ui developer image is incidentally noted. A 2.4 x 2.1 cm right apical pleural density on image [phone] of [id number] is partially imaged IMPRESSION: 1. No acute cervical spine fracture or subluxation. 2. 2.4 x 2.1 cm right apical pleural density, partially imaged on this exam. Although not highly suspicious, this is indeterminate and a nonemergent chest CT is recommended for further evaluation. SINGLE VIEW CHEST CLINICAL HISTORY: Chest pain FINDINGS: An AP, portable, upright chest radiograph is compared to study dated 09/13/2018. The heart is top retraction. Chronic interstitial thickening similar to previous. There is mild bibasilar scarring/atelectasis. No airspace consolidation or large pleural effusion is identified. No pneumothorax is seen. The skeletal structures are osteopenic. There is a chronic/healed right-sided rib fracture. A left shoulder arthroplasty is in place. IMPRESSION: No acute acute cardiopulmonary abnormality is identified. Medications Administered ER Medications Given: Normal saline 1000ml bolus x2 ECG Rate (beats per minute): 106 Rhythm: sinus tachycardia Findings: no acute ischemic change Comparison ECG Date: from (September 13, 2018) Change: the following changes noted (Rate increased) Code Status & VTE Plan Code Status Full VTE Prophylaxis Plan VTE Prophylaxis will be ordered: No PG Care Time/CCT Total # of Minutes Spent Total Time Spent with Patient: Total time spent is greater than 50% in coordination of care (as documented) at patient's floor/unit and/or counseling patient: Coding Level of Care Code 37574 INT INP/OBS CARE MIN Diagnoses Syncope R55 Hyponatremia E87.1 Hypertension I10 Diabetes mellitus E11.9 Hyperlipidemia E78.5
[2025-02-23] MEDS ORDERED: GLUCOSE 40% GEL 15 GM TUBE PO PRN (20:10)
[2025-02-23] MEDS ORDERED: DEXTROSE 50% 50 ML SYRINGE IV PRN (20:10)
[2025-02-23] MEDS ORDERED: CARBOHYDRATES FOR HYPOGLYCEMIA PO PRN (20:10)
[2025-02-23] MEDS ORDERED: GLUCOSE 10 TAB/TUBE PO PRN (20:10)
[2025-02-23] MEDS ORDERED: GLUCAGON FOR INJ 1 MG VIAL SQ PRN (20:10)
[2025-02-23] MEDS: SIMVASTATIN 20 MG TAB PO SCH (20:43)
[2025-02-23] MEDS: ASPIRIN 81 MG ECTAB PO SCH (20:44)
[2025-02-23] MEDS: INSULIN ASPART PER UNIT CHARGE SC SCH (20:45)
[2025-02-23] MEDS ORDERED: CETIRIZINE HCL 10 MG TABLET PO PRN (21:07)
[2025-02-24 06:43] VITALS: RESP 17
[2025-02-24 07:55] VITALS: BP 175/88; TEMP 97.5; O2SAT 100
[2025-02-24 08:12] LABS: Anion Gap 8.0 (3-11); Blood Urea Nitrogen 10.0 mg/dl (6-23); Calcium 9.2 mg/dl (8.6-10.3); Carbon Dioxide 28.0 mmol/L (21-32); Chloride 94.0 mmol/L (98-107); Creatinine Clr Calc Pharmacy 93.7 ml/min; Glucose 178.0 mg/dl (70-99(Fasting)); Potassium 3.8 mmol/L (3.5-5.1); Sodium 130.0 mmol/L (136-145)
[2025-02-24] MEDS: SODIUM CHLORIDE 1 GM TABLET PO SCH (08:24)
[2025-02-24] MEDS ORDERED: NON-FORMULARY MEDICATION (Pioglitazone [Actos] 45 mg Tablet) PO SCH (09:00)
[2025-02-24 11:13] VITALS: PULSE 90
--- NOTE | 2025-02-24 11:16 | Discharge Summary ---
Date of Service February 24, 2025 Admission HPI Per Admitting Provider Martell Llamas is a 69 year old male who presents to the ER with syncope. He was at [employer] today and waled 1.5 miles while not drinking enough and hip and knees were hurting. He reports his knees locked up and he went to the ground and although he doesn't remember people around him told him that he lost consciousness but perhaps for only a few seconds. He denies feeling lightheaded, dizzy, chest pain, short of breath or nauseous prior to falling. No other syncopal episode in the last year. He currently feels back to his normal self. He is unsure what his glucose was measured at by EMS but reports not being given anything to eat prior to the ER. Principal Diagnosis Syncopal Fall Discharge Exam Constitutional WD/WN, vitals as above Respiratory normal respiratory effort, lungs clear to auscultation Cardiovascular RRR, no murmur, no edema Vessels: no carotid bruit Extremities: no edema Psychiatric Eye Contact: good eye contact Speech: normal rate/rhythm/volume of speech Thought Process: linear/logical thought process Discharge Data Allergies Allergy/AdvReac Type Severity Reaction Status Date / Time pepper (genus Capsicum) Allergy Mild Swelling Verified 10/12/24 10:51 of Lip/Tongue/Throat tomato Allergy Mild SWELLING Verified 10/12/24 10:51 TONGUE EGG PLANT Allergy Intermediate SWELLING Uncoded 10/12/24 10:51 TONGUE Consultations 02/23/25 15:15 ED Decision to Admit Stat Ordered Studies 02/23/25 13:14 CT cervical spine wo con Stat CT head/brain wo con Stat Hospital Course (1) Syncope: (2) Hyponatremia: (3) Hypertension: (4) Diabetes mellitus: (5) Hyperlipidemia: Plan 69 year old male presents to the ER with a syncopal event in association to prolonged walking, heat and knee/hip pain #Syncope / fall (Day of Admit) Most likely vasovagal secondary to heat, walking, not keeping up with oral intake, pain from knees/hips However given lack of prodromal symptoms will monitor overnight on telemetry for arrhythmia Only apparent injury from fall is posterior scalp hematoma, monitor for concussion symptoms No change to antihypertensives given no symptoms prior to this episode (02/24) -Patient showed no signs of concussion upon evaluation. Patient denies N/V/D, chest pain, SOB, and heart palpitations. Patient is currently stable and desires to go home. -CT cervical spine: IMPRESSION: 1. No acute cervical spine fracture or subluxation. 2. 2.4 x 2.1 cm right apical pleural density, partially imaged on this exam. Although not highly suspicious, this is indeterminate and a nonemergent chest CT is recommended for further evaluation. -CT Head IMPRESSION: 1. There is no hemorrhage, mass effect, or evidence of acute territorial ischemia by CT criteria. 2. Scalp hematoma at the posterior vertex. -CXR IMPRESSION: No acute acute cardiopulmonary abnormality is identified. #Hyponatremia Appears to be at his baseline even with elevated glucose levels, do not think this is the cause of his syncope Continue home medication salt tabs #T2DM HbA1C 6.7 [06/2024] Continue metformin and Actos Ozempic can be restarted at home Add Novolog for correction only: --Goal BSG Range: Low 110 mg/dL, High 140 mg/dL --Correction Factor: 45 mg/dL/unit no carb ratio --BSGs ACHS if eating, q6h if npo #Hypertension Continue furosemide and lisinopril #Hyperlipidemia Continue simvastatin VTE Prophylaxis - low risk Disposition - observation to med/tele Total Time Total Time Spent Total Time Spent (In Minutes): I spent 30 mins seeing the patient, reviewing data, and documenting today. Discharge Plan Discharge Items Patient Disposition: Home - Self-Care Reason For Visit: SYNCOPE Discharge Diagnosis: Syncope Condition on Discharge: Good Activity: Resume your previous activity Non-emergency contact: Primary Care Provider Call non-emergency contact if: your symptoms worsen and your temperature is above 101.5 Follow-up/Referrals: Mary Carmen Wing [Primary Care Provider] - (PLEASE CLAL YOUR PRIMARY CARE PROVIDER TO SCHEDULE A HOSPITAL FOLLOWUP APPOINTMENT WITHIN 7-10 DAYS) Diet: Carb Consistent or DM2 Addtl Attending Provider Instructions: You were admitted to the ED because of passing out during the arts [place] and hitting your head. We provided you fluids because you may have been dehydrated due to walking at the arts festival. We provided imaging of your head. The head imaging came back showing no signs of stroke or bleeding. However, it did show a little shadow at the top part of your lung. It wasn't highly suspicious of anything but we would like for you to follow up with your primary care doctor in a week or two and get a CT scan of your chest to get a full picture of your lungs. We would also recommend for you to speak to your primary care doctor about getting an ultrasound of your heart, an echocardiogram, and an ultrasound of your carotid arteries. It was a pleasure meeting and treating you. Pending Studies at Discharge: No Stand-Alone Forms: My [facility], Smoking Cessation Medications and DC Order Prescriptions: Continued Zyrtec 10 mg capsule 10 mg PO DAILY PRN (Reason: Allergy Symptoms) aspirin 81 mg Tablet,Delayed Release (Dr/Ec) 81 mg PO HS furosemide 20 mg Tablet 20 mg PO QDL lisinopril 40 mg Tablet 40 mg PO HS metformin 850 mg Tablet 850 mg PO TID simvastatin 20 mg Tablet 20 mg PO HS sodium chloride 1,000 mg Tablet,Soluble 1,000 mg PO QAM pioglitazone [Actos] 45 mg Tablet 45 mg PO QAM vitamin B complex Tablet 1 tab PO QAM Ozempic 2 mg/dose (8 mg/3 mL) Pen Injector 2 mg SUBCUT WK Rx Instructions: saturdays Cbd 25 mg PO UD PRN (Reason: Anxiety) Discharge Orders: Discharge Order (Routine); Ordered 02/24/25 Ordered By: Kevin Ivory/Other Patient Handouts: What Is Syncope, Causes of Syncope Admission Data Admit Date/Time: 02/23/25 16:09 Attending Provider: Florian Monteiro Admit Provider: Stephen Moseley Primary Care Provider: Mary Carmen Wing Other Providers: Stephen Moseley Other Interventions: Discharge Summary Assessment (RN) Last Done: 02/24/25 11:11 Supervising Physician Co-Signing Physician Notes Patient without complaints this morning. He admits that he just "pushed himself too far" while walking around an outdoor festival yesterday. He notes that he has significant difficulties with ambulation related to his knee arthritis, and this is particular difficult when in a crowded situation. Admission lab work unremarkable except for serum sodium of 128 (history of chronic hyponatremia). This improved to 130 upon repeat Also noted elevated blood glucose, consistent with his history of diabetes. CT scan of the head demonstrated no intracranial pathology. CT of the spine was unremarkable although did demonstrate a incompletely visualized questionable pleural density for which a dedicated CT scan was recommended for complete evaluation. Chest x-ray was unremarkable. Results of blood work and imaging were reviewed with the patient. Given these findings, the uneventful night, and the overall clinical picture, safe for the patient be discharged today with outpatient follow-up. Reviewed the need for a CT scan of the chest as an outpatient. Could consider resting echocardiogram and/or carotid Dopplers as an outpatient. Patient will reach out to his PCP Wednesday morning to schedule an appointment. I will follow-up with his office next week to assure follow-up and coordination of care. Resident Activity Tracking Resident Involvement: Resident Care Provided Care Provided: Adult [facility] Medicine
[2025-02-24] MEDS ORDERED: FUROSEMIDE 20 MG TAB PO SCH (11:30)
--- NOTE | 2025-02-26 09:37 | Electrocardiogram Report ---
Test Reason : Blood Pressure : */* mmHG Vent. Rate : 106 BPM Atrial Rate : 106 BPM P-R Int : 160 ms QRS Dur : 88 ms QT Int : 346 ms P-R-T Axes : 69 55 65 degrees QTcB Int : 459 ms Sinus tachycardia Possible Left atrial enlargement Borderline ECG When compared with ECG of 13-Sep-2018 23:14, Questionable change in QRS axis Confirmed by Rosalie Romero (Abbie) on 02/26/2025 9:36:33 AM Referred By: Confirmed By: Rosalie Romero
== END 2025-02-24 11:37 | disposition home or self-care (01) ==
LOC: 2W 13:07 → ED 13:07 → SUATTDRO 16:09 → 2W 18:12